=== PATIENT | female | born 1990 | race Caucasian/White ===

== ENCOUNTER 2016-04-17 19:46 | Emergency (ER) | payer SELFPAY ==
--- NOTE | 2016-04-17 20:39 | ER Document Report ---
ED Medical Screen (RME) - General Stated Complaint: VAGINAL BLEEDING Mode of Arrival: Ambulatory Information source: Patient Notes: Patient states that she is almost 8 weeks . Patient reports vaginal bleeding that started today, the reports a similar episode a few days ago. Patient does report lower pelvic cramping today. Patient denies any urinary symptoms. Patient has not had an ultrasound confirming the I have greeted and performed a rapid initial assessment of this patient. A comprehensive ED assessment and evaluation of the patient, analysis of test results and completion of the medical decision making process will be conducted by additional ED providers. TRAVEL OUTSIDE OF THE [place] IN LAST 30 DAYS: No - Related Data Allergies/Adverse Reactions: No Known Allergies Allergy (Verified 04/07/15 21:19) Past Medical History Psychiatric Medical History: Reports: Hx Anxiety, Hx Depression - Past Surgical History: Reports: Hx Section - Immunizations Hx Diphtheria, Pertussis, Tetanus Vaccination: No Physical Exam - General General appearance: Appears well, Alert In distress: None Course - Re-evaluation Re-evalutation: 04/17/16 20:[address] Caceres who recommends ultrasound imaging
[2016-04-17 21:29] LABS: ABSOLUTE EOSINOPHILS # (AUTO) 0.1 10^3/uL (0.0-0.6); ABSOLUTE LYMPHOCYTES (AUTO) 2.1 10^3/uL (0.5-4.7); ABSOLUTE MONOCYTES (AUTO) 0.5 10^3/uL (0.1-1.4); ABSOLUTE NEUT (AUTO) 9.9 10^3/uL (1.7-8.2); BASOPHILS % (AUTO) 0.3 % (0-2); EOSINOPHILS % (AUTO) 0.5 % (0-6); HEMATOCRIT 39.6 % (36.0-47.0); HEMOGLOBIN 13.6 g/dL (12.0-15.5); HGB HCT DIFFERENCE 1.2; LYMPHOCYTES % (AUTO) 16.8 % (13-45); MEAN CORPUSCULAR HGB CONC 34.3 g/dL (32.0-36.0); MEAN CORPUSCULAR VOLUME 87 fl (80-97); RED BLOOD COUNT 4.53 10^6/uL (3.72-5.28); RED CELL DISTRIBUTION WIDTH 13.3 % (11.5-14.0); SEGMENTED NEUTROPHILS % (AUTO) 78.4 % (42-78); WHITE BLOOD COUNT 12.6 10^3/uL (4.0-10.5)
[2016-04-17 21:53] LABS: ALANINE AMINOTRANSFERASE 37 U/L (9-52); ALBUMIN 4.8 g/dL (3.5-5.0); ALKALINE PHOSPHATASE 63 U/L (38-126); ANION GAP 13 (5-19); ASPARTATE AMINO TRANSFERASE 24 U/L (14-36); BILIRUBIN,TOTAL 0.5 mg/dL (0.2-1.3); BLOOD UREA NITROGEN 10 mg/dL (7-20); CALCIUM 10.2 mg/dL (8.4-10.2); CARBON DIOXIDE 25 mmol/L (22-30); CHLORIDE 101 mmol/L (98-107); CREATININE RESULT 0.69 mg/dL (0.52-1.25); GLUCOSE 98 mg/dL (75-110); POTASSIUM 4.1 mmol/L (3.6-5.0); SODIUM 139.2 mmol/L (137-145); TOTAL PROTEIN 7.7 g/dL (6.3-8.2)
[2016-04-17] MEDS ORDERED: PYRIDOXINE HCL INJ 100 MG/1 ML VIAL IM ONE (23:38)
--- NOTE | 2016-04-17 23:38 | ER Document Report ---
ED GI/ - General Chief Complaint: Vaginal Bleeding Stated Complaint: VAGINAL BLEEDING Time seen by provider: 23:28 Mode of Arrival: Ambulatory Information source: Patient Notes: 25-year-old female presents to ED for nausea vomiting and 8 weeks . She states that she started vaginal spotting on April 13 for a few hours and then again this morning it started again but today it was darker with a very small clot and she became very anxious. She has not had an ultrasound yet that shows that the baby was in the uterus so she was very concerned. TRAVEL OUTSIDE OF THE [place] IN LAST 30 DAYS: No - HPI Patient complains to provider of: , Vaginal bleeding. No: Pelvic pain Onset: Other - States she had episode on April 13 and again today Timing/Duration: Intermittent Quality of pain: No pain Vaginal bleeding (Compared to normal period): Spotting, Passing clots - States passed a small clot today Menstrual period history: : 2 Para: 1 ABO type: O Rh factor: positive OB ultrasound done: Yes vitamins taken: Yes Associated symptoms: Nausea, Other - Vaginal spotting Exacerbated by: Denies Relieved by: Denies Similar symptoms previously: Yes - Related Data Allergies/Adverse Reactions: No Known Allergies Allergy (Verified 04/17/16 20:39) Past Medical History - General Information source: Patient - Social History Smoking Status: Former Smoker Cigarette use (# per day): No Chew tobacco use (# tins/day): No Smoking Education Provided: No Frequency of alcohol use: None Drug Abuse: None Occupation: mom Lives with: Family Family History: Arthritis, CAD, DM, Hyperlipidemia, Hypertension, Malignancy. denies: COPD, CVA, Thyroid Disfunction Patient has suicidal ideation: No Patient has homicidal ideation: No - Past Medical History Cardiac Medical History: Reports: Hx Hypertension - Preeclampsia before and after delivery Pulmonary Medical History: Reports: Hx Asthma EENT Medical History: Reports: None Neurological Medical History: Reports: None Endocrine Medical History: Reports: None Renal/ Medical History: Reports: None Malignancy Medical History: Reports: None GI Medical History: Reports: None Musculoskeltal Medical History: Reports None Skin Medical History: Reports None Psychiatric Medical History: Reports: Hx Anxiety, Hx Depression - Traumatic Medical History: Reports: None Infectious Medical History: Reports: None Past Surgical History: Reports: Hx Section - Immunizations Hx Diphtheria, Pertussis, Tetanus Vaccination: No Review of Systems - Review of Systems Constitutional: No symptoms reported EENT: No symptoms reported Cardiovascular: No symptoms reported Respiratory: No symptoms reported Gastrointestinal: Nausea, Vomiting Genitourinary: No symptoms reported Female Genitourinary: , Vaginal bleeding Musculoskeletal: No symptoms reported Skin: No symptoms reported Hematologic/Lymphatic: No symptoms reported Neurological/Psychological: No symptoms reported Physical Exam - Vital signs Vitals: Temp Pulse Resp BP Pulse Ox 97.9 F 109 H 16 131/80 H 98 04/17/16 20:08 04/17/16 20:08 04/17/16 20:08 04/17/16 20:08 04/17/16 20:08 Interpretation: Hypertensive - General General appearance: Appears well, Alert - HEENT Head: Normocephalic, Atraumatic Eyes: Normal Pupils: PERRL - Respiratory Respiratory status: No respiratory distress Chest status: Nontender Breath sounds: Normal Chest palpation: Normal - Cardiovascular Rhythm: Regular Heart sounds: Normal auscultation Murmur: No - Abdominal Inspection: Normal Distension: No distension Bowel sounds: Normal Tenderness: Nontender. No: Tender Organomegaly: No organomegaly - Back Back: Normal, Nontender - Extremities General upper extremity: Normal inspection, Nontender, Normal color, Normal ROM , Normal temperature General lower extremity: Normal inspection, Nontender, Normal color, Normal ROM , Normal temperature, Normal weight bearing. No: Abundio's sign - Neurological Neuro grossly intact: Yes Cognition: Normal Orientation: AAOx4 [place] Coma Scale Eye Opening: Spontaneous [place] Coma Scale Verbal: Oriented [place] Coma Scale Motor: Obeys Commands Jan Coma Scale Total: 15 Speech: Normal Motor strength normal: LUE, RUE, LLE, RLE Sensory: Normal - Psychological Associated symptoms: Normal affect, Normal mood - Skin Skin Temperature: Warm Skin Moisture: Dry Skin Color: Normal Course - Re-evaluation Re-evalutation: 04/18/16 08:[address] Yeung concerning getting a ultrasound on this young lady who is and having vaginal bleeding and has not yet had a ultrasound to confirm intrauterine . Patient states she had some spotting with small clots. - Vital Signs Vital signs: Temp Pulse Resp BP Pulse Ox 98.1 F 76 16 125/83 97 04/18/16 00:14 04/18/16 00:14 04/18/16 00:14 04/18/16 00:14 04/18/16 00:14 - Laboratory Result Diagrams: 04/17/16 21:03 04/17/16 21:03 Laboratory results interpreted by me: 04/17/16 04/17/16 21:03 21:03 WBC 12.6 H Seg Neutrophils % 78.4 H Absolute Neutrophils 9.9 H Beta HCG, Quant 00612.00 H - Diagnostic Test Radiology reviewed: Image reviewed, Reports reviewed Discharge - Discharge Clinical Impression: Vaginal bleeding before 22 weeks gestation Condition: Stable Disposition: HOME, SELF-CARE Additional Instructions: : You are . care is best started as early in as possible. If you're unsure about continuing this , you should discuss this with your physician or with back tender cloth printing at [facility]. You should take only medications approved by your physician. Acetaminophen can safely be taken for minor pains. As a rule, medication for chronic conditions such as asthma or seizures can safely be continued. You should discuss with the physician every medicine you take. Any regular exercise program can be continued. Talk to your physician, however, before engaging in competitive or demanding sports. Alcohol, smoking, and "street drugs" are dangerous to your baby. Cocaine is especially dangerous. Don't use any illicit drugs! You were given a copy of your ultrasound report please follow-up with your OB/ QUILL CLEANER and take this to your appointment BLEEDING DURING EARLY : You have been evaluated for passing blood while . While we take this symptom very seriously, most women with your degree of bleeding will go on to have a perfectly normal baby. At this time, there is no indication that a miscarriage will occur. (A miscarriage occurs when the fetus is abnormal. There is no medicine or treatment to prevent it.) A more serious cause of bleeding is tubal (or ectopic) . An ultrasound usually can show whether the is in the uterus or in the tube. Sometimes in early , no fetus is seen. In this case, careful follow-up, including repeat blood tests and repeat ultrasound, is necessary. Do not douche or have sex for at least a week, or until OK'd by the doctor. Don't use tampons. Call the doctor or return for re-examination if there is an increase in bleeding or cramping, extreme weakness, fainting, new abdominal pain, fever, or passage of tissue. Acetaminophen Acetaminophen may be taken for pain relief or fever control. It's much safer than aspirin, offering a wider range of "safe" dosages. It is safe during . Some brand names are Tylenol, Panadol, Datril, Anacin 3, Tempra, and Liquiprin. Acetaminophen can be repeated every four hours. The following are maximum recommended dosages: WEIGHT Dose Drops Elixir Chewable( 80mg) (LBS.) drprs=droppers tsp=teaspoon 6 40 mg .4 ml (1/2) 6-11 80 mg .8 ml (full) 1/2 tsp 1 tab 12-16 120 mg 1 1/2 drprs 3/4 tsp 1 1/2 tabs 17-23 160 mg 2 drprs 1 tsp 2 tabs 24-30 240 mg 3 drprs 1 1/2 tsp 3 tabs 30-35 320 mg 2 tsp 4 tabs 36-41 360 mg 2 1/4 tsp 4 1 /2 tabs 42-47 400 mg 2 1/2 tsp 5 tabs 48-53 480 mg 3 tsp 6 tabs 54-59 520 mg 3 1/4 tsp 6 1 /2 tabs 60-64 560 mg 3 1/2 tsp 7 tabs 65-70 600 mg 3 3/4 tsp 7 1 /2 tabs 71-76 640 mg 4 tsp 8 tabs 77-82 720 mg 4 1/2 tsp 9 tabs 83-88 800 mg 5 tsp 10 tabs >89 pounds or adults 650 mg to 900 mg Acetaminophen can be repeated every four hours. Maximum daily dose not to exceed 4000 mg. These maximum recommended dosages are slightly higher than the dosages written on the product container, but these dosages are very safe and well below the toxic dosage for acetaminophen. You should try [id number] vitamin B 6 for your nausea. Please follow-up with one of the X RAY TECHNICIAN's and schedule a follow-up appointment. FOLLOW-UP CARE: If you have been referred to a physician for follow-up care, call the physician s office for an appointment as you were instructed or within the next two days. If you experience worsening or a significant change in your symptoms (very heavy bleeding with large clots of blood, passage of tissue, more severe abdominal / pelvic pain or cramping, feeling faint or severe weakness, fever, etc.), notify the physician immediately or return to the Emergency Department at any time for re-evaluation. OBSTETRIC-GYNECOLOGIC (OB-QUILL [facility]AN[facility]) PHYSICIANS IN [place]: [facility] [address] [place] [address] [phone] For active duty and dependents diagnosed with a threatened or miscarriage, you should follow up in the following manner: Standard patients who have a local civilian provider should follow up with that provider. Patients of the Family Practice Clinic should call your Team Nurse at 8: 00 am the following morning for further instructions. If you are neither a Standard patient nor a patient of the Family Practice Clinic, you should follow up at the [facility] ([facility]) . Patients already enrolled in the [facility] OB Clinic, Prime patients not assigned to the Family Practice Clinic, and Active Duty patients not assigned to Family Practice Clinic should report to the [facility] Lab at 8:00 am the next morning that the [facility] OB Clinic is open and then you will be seen in the OB Clinic at 11:00 am. Forms: Elevated Blood Pressure Referrals: [facility] [Provider Group] - Follow up as needed
[2016-04-17] MEDS ORDERED: PYRIDOXINE HCL INJ 100 MG/1 ML VIAL ONE (23:58)
[2016-04-18 00:16] VITALS: BP 125/83
== END 2016-04-18 00:14 | disposition home or self-care (01) ==
LOC: ER 19:46
DX: O20.9 Hemorrhage in early pregnancy, unspecified (principal); O21.9 Vomiting of pregnancy, unspecified; O99.511 Diseases of the respiratory system complicating pregnancy, first trimester; J45.909 Unspecified asthma, uncomplicated; Z3A.08 8 weeks gestation of pregnancy; Z87.891 Personal history of nicotine dependence
CPT/HCPCS: 99284; 96372; 86900; 86901; 36415; 84702; 85025; 80053; 76817; J3415

== ENCOUNTER → 2016-05-08 | Outpatient (CLI) | payer MEDICAID ==
[2016-05-08 15:08] LABS: PROTHROMBIN TIME 12.2 SEC (11.4-15.4)
[2016-05-08 15:09] LABS: PARTIAL THROMBOPLASTIN TIME 32.3 SEC (23.5-35.8)
[2016-05-08 15:14] LABS: URIC ACID 3.7 mg/dL (2.5-6.2)
[2016-05-08 15:17] LABS: ABSOLUTE EOSINOPHILS # (AUTO) 0.1 10^3/uL (0.0-0.6); ABSOLUTE LYMPHOCYTES (AUTO) 2.5 10^3/uL (0.5-4.7); ABSOLUTE MONOCYTES (AUTO) 0.5 10^3/uL (0.1-1.4); ABSOLUTE NEUT (AUTO) 8.4 10^3/uL (1.7-8.2); BASOPHILS % (AUTO) 0.3 % (0-2); EOSINOPHILS % (AUTO) 0.6 % (0-6); HEMATOCRIT 37.9 % (36.0-47.0); HEMOGLOBIN 12.8 g/dL (12.0-15.5); HGB HCT DIFFERENCE 0.5; LYMPHOCYTES % (AUTO) 21.6 % (13-45); MEAN CORPUSCULAR HEMOGLOBIN 29.5 pg (27.0-33.4); MEAN CORPUSCULAR HGB CONC 33.7 g/dL (32.0-36.0); MEAN CORPUSCULAR VOLUME 87 fl (80-97); MONOCYTES % (AUTO) 4.7 % (3-13); RED BLOOD COUNT 4.34 10^6/uL (3.72-5.28); RED CELL DISTRIBUTION WIDTH 13.2 % (11.5-14.0); SEGMENTED NEUTROPHILS % (AUTO) 72.8 % (42-78); WHITE BLOOD COUNT 11.5 10^3/uL (4.0-10.5)
== END ==
LOC: OCH 14:41
DX: Z34.81 Encounter for supervision of other normal pregnancy, first trimester (principal)
CPT/HCPCS: 36415; 82570; 83615; 84156; 84450; 84460; 84550; 85025; 85610; 85730

== ENCOUNTER 2016-05-24 13:49 | Emergency (ER) | payer MEDICAID ==
--- NOTE | 2016-05-24 14:06 | ER Document Report ---
ED Medical Screen (RME) - General Stated Complaint: NAUSEA,VOMITING Time seen by provider: 14:04 Mode of Arrival: Wheelchair Information source: Patient Notes: 25-year-old female presents to ED for nausea and vomiting. She is 11 weeks says she's had nausea and vomiting throughout her but today it is much worse. She states she is also having abdominal pain and back pain. She states she is on Diglegis for the [place]. 2 para 1 I have greeted and performed a rapid initial assessment of this patient. A comprehensive ED assessment and evaluation of the patient, analysis of test results and completion of medical decision making process will be conducted by an additional ED providers. TRAVEL OUTSIDE OF THE [place] IN LAST 30 DAYS: No - Related Data Allergies/Adverse Reactions: No Known Allergies Allergy (Verified 04/17/16 20:39) Past Medical History - Past Medical History Cardiac Medical History: Reports: Hx Hypertension - Preeclampsia before and after delivery Pulmonary Medical History: Reports: Hx Asthma Renal/ Medical History: Denies: Hx Peritoneal Dialysis Psychiatric Medical History: Reports: Hx Anxiety, Hx Depression - Past Surgical History: Reports: Hx Section - Immunizations Hx Diphtheria, Pertussis, Tetanus Vaccination: No Physical Exam - Vital signs Vitals: Temp Pulse Resp BP Pulse Ox 97.8 F 114 H 18 125/80 99 05/24/16 14:05/24/16 14:05/24/16 14:01 05/24/16 14:01 05/24/16 14:01 Course - Vital Signs Vital signs: Temp Pulse Resp BP Pulse Ox 97.8 F 114 H 18 125/80 99 05/24/16 14:05/24/16 14:05/24/16 14:05/24/16 14:01 05/24/16 14:01
[2016-05-24 14:51] LABS: ABSOLUTE BASOPHILS # (AUTO) 0.1 10^3/uL (0.0-0.2); ABSOLUTE MONOCYTES (AUTO) 0.4 10^3/uL (0.1-1.4); ABSOLUTE NEUT (AUTO) 14.7 10^3/uL (1.7-8.2); BASOPHILS % (AUTO) 0.4 % (0-2); EOSINOPHILS % (AUTO) 0.2 % (0-6); HEMATOCRIT 36.5 % (36.0-47.0); HEMOGLOBIN 12.7 g/dL (12.0-15.5); HGB HCT DIFFERENCE 1.6; LYMPHOCYTES % (AUTO) 6.5 % (13-45); MEAN CORPUSCULAR HEMOGLOBIN 30.1 pg (27.0-33.4); MEAN CORPUSCULAR HGB CONC 34.9 g/dL (32.0-36.0); MEAN CORPUSCULAR VOLUME 86 fl (80-97); MONOCYTES % (AUTO) 2.2 % (3-13); RED BLOOD COUNT 4.24 10^6/uL (3.72-5.28); RED CELL DISTRIBUTION WIDTH 13.3 % (11.5-14.0); SEGMENTED NEUTROPHILS % (AUTO) 90.7 % (42-78); WHITE BLOOD COUNT 16.2 10^3/uL (4.0-10.5)
[2016-05-24 15:01] LABS: ALANINE AMINOTRANSFERASE 29 U/L (9-52); ALBUMIN 4.1 g/dL (3.5-5.0); ALKALINE PHOSPHATASE 65 U/L (38-126); ANION GAP 15 (5-19); ASPARTATE AMINO TRANSFERASE 19 U/L (14-36); BILIRUBIN,DIRECT 0.2 mg/dL (0.0-0.4); BILIRUBIN,TOTAL 0.6 mg/dL (0.2-1.3); BLOOD UREA NITROGEN 7 mg/dL (7-20); CALCIUM 9.2 mg/dL (8.4-10.2); CARBON DIOXIDE 23 mmol/L (22-30); CHLORIDE 103 mmol/L (98-107); GLUCOSE 97 mg/dL (75-110); POTASSIUM 4.2 mmol/L (3.6-5.0); SODIUM 140.5 mmol/L (137-145); TOTAL PROTEIN 7.2 g/dL (6.3-8.2)
[2016-05-24 15:08] LABS: APPEARANCE,URINE SLIGHTLY-CLOUDY; BILIRUBIN,URINE NEGATIVE (NEGATIVE); GLUCOSE, URINE NEGATIVE (NEGATIVE); KETONES,URINE 80 mg/dL (NEGATIVE); LEUKOCYTE ESTERASE,URINE NEGATIVE (NEGATIVE); NITRITE,URINE NEGATIVE (NEGATIVE); PROTEIN,URINE 100 mg/dL (NEGATIVE); URINE SPECIFIC GRAVITY 1.032; UROBILINOGEN,URINE NEGATIVE mg/dL (<2.0)
[2016-05-24] MEDS ORDERED: DIPHENHYDRAMINE HCL 50 MG/ML VIAL IV ONE (17:39)
[2016-05-24] MEDS ORDERED: NORMAL SALINE 1000 ML 2,000 ML IV ONE (17:39)
--- NOTE | 2016-05-24 17:40 | ER Document Report ---
ED GI/ - General Chief Complaint: Nausea/Vomiting Stated Complaint: NAUSEA,VOMITING Mode of Arrival: Wheelchair Information source: Patient Notes: Patient states she is currently 11 weeks and reports nausea and vomiting throughout her early that worsened today. Patient states she 's vomited about 11 times. Patient states her son has been sick at home with similar symptoms. Patient is . Patient does report lower pelvic cramping. Patient denies any diarrhea. Patient reports generalized abdominal tenderness. Patient reports having some dizziness earlier today but has improved. TRAVEL OUTSIDE OF THE [place] IN LAST 30 DAYS: No - HPI Patient complains to provider of: Abdominal pain, , Vomiting. No: Vaginal bleeding, Vaginal discharge Onset: This morning Timing/Duration: Persistent Quality of pain: Achy Pain Level: 3 Location: Other Vaginal bleeding (Compared to normal period): None - Generalized abdomen Sexual history: Active Associated symptoms: Dizzy, Nausea, Vomiting. denies: Diarrhea, Urinary hesitancy, Urinary frequency, Urinary retention, Urinary urgency, Vaginal discharge Exacerbated by: Denies Relieved by: Denies Similar symptoms previously: Yes Recently seen / treated by doctor: No - Related Data Allergies/Adverse Reactions: No Known Allergies Allergy (Verified 04/17/16 20:39) Past Medical History - General Information source: Patient Last Menstrual Period: 11 weeks - Social History Smoking Status: Never Smoker Chew tobacco use (# tins/day): No Frequency of alcohol use: None Drug Abuse: None Occupation: none Lives with: Family Family History: Arthritis, CAD, DM, Hyperlipidemia, Hypertension, Malignancy. denies: COPD, CVA, Thyroid Disfunction Patient has suicidal ideation: No Patient has homicidal ideation: No - Past Medical History Cardiac Medical History: Reports: Hx Hypertension - Preeclampsia before and after delivery Pulmonary Medical History: Reports: Hx Asthma Renal/ Medical History: Denies: Hx Peritoneal Dialysis Psychiatric Medical History: Reports: Hx Anxiety, Hx Depression - Past Surgical History: Reports: Hx Section - Immunizations Hx Diphtheria, Pertussis, Tetanus Vaccination: No Review of Systems - Review of Systems Constitutional: No symptoms reported. denies: Fever, Recent illness EENT: No symptoms reported Cardiovascular: Dizziness. denies: Chest pain, Syncope Respiratory: No symptoms reported. denies: Cough, Short of breath Gastrointestinal: Abdominal pain, Nausea, Vomiting, Poor fluid intake. denies: Diarrhea Genitourinary: No symptoms reported. denies: Dysuria, Flank pain Female Genitourinary: . denies: Vaginal discharge, Vaginal bleeding Musculoskeletal: No symptoms reported Skin: No symptoms reported Hematologic/Lymphatic: No symptoms reported Neurological/Psychological: No symptoms reported Physical Exam - Vital signs Vitals: Temp Pulse Resp BP Pulse Ox 97.8 F 114 H 18 125/80 99 05/24/16 14:01 05/24/16 14:01 05/24/16 14:01 05/24/16 14:01 05/24/16 14:01 - General General appearance: Appears well, Alert In distress: None - HEENT Head: Normocephalic, Atraumatic Eyes: Normal Conjunctiva: Normal Nasal: Normal Mouth/Lips: Normal Mucous membranes: Dry Pharynx: Normal Neck: Normal, Supple. No: Lymphadenopathy - Respiratory Respiratory status: No respiratory distress Chest status: Nontender Breath sounds: Normal. No: Rales, Rhonchi, Stridor, Wheezing Chest palpation: Normal - Cardiovascular Rhythm: Tachycardia Heart sounds: S1 appreciated, S2 appreciated Murmur: No - Abdominal Inspection: Obese Distension: No distension Bowel sounds: Normal Tenderness: Tender - Generalized abdominal tenderness Organomegaly: No organomegaly - Back Back: Normal, Nontender. No: CVA tenderness, Vertebra tenderness - Extremities General upper extremity: Normal inspection, Normal strength General lower extremity: Normal inspection, Normal strength - Neurological Neuro grossly intact: Yes Cognition: Normal Jan Coma Scale Eye Opening: Spontaneous Jan Coma Scale Verbal: Oriented [place] Coma Scale Motor: Obeys Commands Jan Coma Scale Total: 15 - Psychological Associated symptoms: Normal affect, Normal mood - Skin Skin Temperature: Warm Skin Moisture: Dry Skin Color: Normal Course - Re-evaluation Re-evalutation: 05/24/16 20:08 Abdomen soft, nontender. Patient denies any nausea at present. Discuss results of patient's diagnostic tests with patient. Patient encouraged to return immediately for any persistent vomiting, pain, fever, or any other concerning symptoms. - Vital Signs Vital signs: Temp Pulse Resp BP Pulse Ox 98.8 F 98 20 120/72 97 05/24/16 20:24 05/24/16 20:24 05/24/16 20:24 05/24/16 20:24 05/24/16 20:24 - Laboratory Result Diagrams: 05/24/16 14:30 05/24/16 14:30 Laboratory results interpreted by me: 05/24/16 05/24/16 05/24/16 14:30 14:30 14:35 WBC 16.2 H Seg Neutrophils % 90.7 H Lymphocytes % 6.5 L Monocytes % 2.2 L Absolute Neutrophils 14.7 H Creatinine 0.50 L Beta HCG, Quant 56554.00 H Urine Protein 100 H Urine Ketones 80 H Urine Ascorbic Acid 40 H 05/24/16 20:08 Labs- Entire Visit 05/24/16 05/24/16 05/24/16 14:30 14:30 14:35 WBC 16.2 H RBC 4.24 Hgb 12.7 Hct 36.5 MCV 86 MCH 30.1 MCHC 34.9 RDW 13.3 Plt Count 233 Seg Neutrophils % 90.7 H Lymphocytes % 6.5 L Monocytes % 2.2 L Eosinophils % 0.2 Basophils % 0.4 Absolute Neutrophils 14.7 H Absolute Lymphocytes 1.0 Absolute Monocytes 0.4 Absolute Eosinophils 0.0 Absolute Basophils 0.1 Sodium 140.5 Potassium 4.2 Chloride 103 Carbon Dioxide 23 Anion Gap 15 BUN 7 Creatinine 0.50 L Est GFR ( Amer) > 60 Est GFR (Non-Af Amer) > 60 Glucose 97 Calcium 9.2 Total Bilirubin 0.6 Direct Bilirubin 0.2 Indirect Bilirubin Not Reportable Neonat Total Bilirubin Not Reportable AST 19 ALT 29 Alkaline Phosphatase 65 Total Protein 7.2 Albumin 4.1 Beta HCG, Quant 54624.00 H Total Beta HCG POSITIVE Urine Color YELLOW Urine Appearance SLIGHTLY-CLOUDY Urine pH 6.0 Ur Specific Max 1.032 Urine Protein 100 H Urine Glucose (UA) NEGATIVE Urine Ketones 80 H Urine Blood NEGATIVE Urine Nitrite NEGATIVE Urine Bilirubin NEGATIVE Urine Urobilinogen NEGATIVE Ur Leukocyte Esterase NEGATIVE Urine WBC (Auto) 1 Urine RBC (Auto) 1 Squamous Epi Cells Auto 8 Urine Mucus (Auto) MOD Urine Ascorbic Acid 40 H Discharge - Discharge Clinical Impression: Dehydration, Resolved abdominal pain Qualifiers: Weeks of gestation: 11 weeks Qualified Code(s): Z3A.11 - 11 weeks gestation of Vomiting Qualifiers: Vomiting type: unspecified Vomiting Intractability: non-intractable Nausea presence: with nausea Qualified Code(s): R11.2 - Nausea with vomiting, unspecified Condition: Stable Disposition: HOME, SELF-CARE Additional Instructions: Return immediately for any new or worsening symptoms Followup with your RN MIDWIFE care provider, call tomorrow to make a followup appointment You may take Benadryl [id number] as directed to help with her nausea symptoms VOMITING: Vomiting (or nausea without vomiting) can be caused by many other different problems. It can mean that something's wrong with the stomach, such as ulcers or inflammation or the intestinal tract, such as appendicitis. But it can also be a symptom of a problem that has nothing to do with the stomach or intestines. Vomiting is common with severe headaches, earaches, tonsillitis, and kidney infections, etc. We see it with pneumonia or heart attacks. Drugs can cause nausea and vomiting. Many abdominal problems cause vomiting; for example, gallstones, kidney stones, pancreatitis, and intestinal obstruction ( blocked bowels). In most cases, curing the vomiting depends on fixing the problem that caused it. For temporary relief, we may use an anti-nausea medicine. For home use, we can prescribe suppositories, chewable pills, pills that dissolve in the mouth, or liquid anti-nausea drugs. If the vomiting seems to be caused by a problem in the stomach, acid-suppressing drugs may be prescribed as well. It's important to avoid dehydration. Sip small amounts of clear liquids ( soft drinks, tea, broth, etc) . Try to take fluids frequently even if you are vomiting to prevent dehydration. Take increasing amounts of fluid and when liquids are being consumed successfully, advance to small amounts of bland food (toast, soups, mashed potatoes, etc.) until you are able to resume a regular diet. Avoid aspirin, tobacco, and alcohol. If the vomiting worsens, if the problem that's making you vomit worsens, or if there's evidence of bleeding in the stomach (such as black, tarry stool, or bloody or black vomit), you should return immediately. Also, return if abdominal pain worsens or becomes localized to one area or you develop high fever. Call your doctor if you aren't improved in 24 hours. INTRAVENOUS (I V) FLUIDS: As part of your care today, you received intravenous (IV) fluids. IV fluids are administered to patients who are dehydrated or to those who have certain chemical (electrolyte) abnormalities that need correcting. FOLLOW-UP CARE: If you have been referred to a physician for follow-up care, call the physician s office for an appointment as you were instructed or within the next two days. If you experience worsening or a significant change in your symptoms, notify the physician immediately or return to the Emergency Department at any time for re-evaluation. [facility] [NO LOCAL MD] - Follow up tomorrow
[2016-05-24 20:25] VITALS: BP 120/72
== END 2016-05-24 20:28 | disposition home or self-care (01) ==
LOC: ER 13:49
DX: E86.0 Dehydration (principal); R11.2 Nausea with vomiting, unspecified; R10.9 Unspecified abdominal pain; R10.2 Pelvic and perineal pain; Z3A.11 11 weeks gestation of pregnancy
CPT/HCPCS: 99283; 96361; 96374; 36415; 84702; 85025; 80053; 81001; J1200; J7030

== ENCOUNTER 2016-08-11 18:37 | Outpatient (CLI) | payer MEDICAID ==
[2016-08-11 21:52] LABS: APPEARANCE,URINE CLEAR; BILIRUBIN,URINE NEGATIVE (NEGATIVE); GLUCOSE, URINE NEGATIVE (NEGATIVE); KETONES,URINE NEGATIVE (NEGATIVE); LEUKOCYTE ESTERASE,URINE NEGATIVE (NEGATIVE); NITRITE,URINE NEGATIVE (NEGATIVE); PROTEIN,URINE NEGATIVE (NEGATIVE); URINE SPECIFIC GRAVITY 1.004; UROBILINOGEN,URINE NEGATIVE mg/dL (<2.0)
[2016-08-11 22:05] LABS: URINE METHADONE SCREEN NEGATIVE; URINE OPIATES LOW NEGATIVE; URINE PHENCYCLIDINE SCREEN NEGATIVE
[2016-08-11 22:11] LABS: URINE BARBITURATES SCREEN UNCONFIRMED POSITIVE
--- NOTE | 2016-08-12 00:01 | RADIOLOGY REPORT (SQ) ---
EXAM DESCRIPTION: U/S OB 14+ TA/1 GEST W/DOPPLER COMPLETED DATE/TIME: 08/11/2016 11:40 pm REASON FOR STUDY: contractions with history of csection COMPARISON: None. TECHNIQUE: Static and Dynamic grayscale imaging performed of gravid uterus using transabdominal appr oach. Additional selected color Doppler and spectral images recorded. All stored on PACS. LIMITATIONS: None. FINDINGS: EGA: 24 weeks, 4 days CARMENCITA: 11/27/2016 EFW: 727 g PERCENTILE: 68 SHAMEKA: 11.7 PLACENTA: Posterior PRESENTATION: Breech ANATOMY: HEART RATE: 143 beats per minute. FOUR CHAMBER HEART: Visualized. THREE VESSEL CORD: Yes. CORD INSERTION: Visualized. KIDNEYS AND BLADDER: Visualized. Appear normal. STOMACH: Visualized. Appears normal. SPINE: Normal as visualized. BRAIN AND LATERAL VENTRICLES: Visualized. Appear normal. OTHER: No other significant finding. MATERNAL ADNEXA: Maternal ovaries not visualized. CERVICAL LENGTH: 4.0 cm Closed. OTHER: No other significant finding. IMPRESSION: LIVING INTRAUTERINE . ESTIMATED GESTATIONAL AGE 24 weeks, 4 days NO VISUALIZED ANOMALIES. Trimester of : Second trimester - 13 weeks 1 day to 27 weeks 6 days. TECHNICAL DOCUMENTATION: JOB ID: [id number] [employer]- All Rights Reserved
== END 2016-08-12 00:31 | disposition home or self-care (01) ==
LOC: LC 18:37
PROVIDERS: ATTEND Obstetrics & Gynecology
PROC: 4A1HXCZ Monitoring of Products of Conception, Cardiac Rate, External Approach (ICD-10-PCS; principal; 2016-08-11)
DX: O47.02 False labor before 37 completed weeks of gestation, second trimester (principal); O34.219 Maternal care for unspecified type scar from previous cesarean delivery; Z3A.24 24 weeks gestation of pregnancy
CPT/HCPCS: 76805; 80307; 81001; 87086; 93976

== ENCOUNTER 2016-08-22 23:06 | Outpatient (CLI) | payer MEDICAID ==
[2016-08-23 00:12] LABS: APPEARANCE,URINE SLIGHTLY-CLOUDY; BILIRUBIN,URINE NEGATIVE (NEGATIVE); CALCIUM OXALATE CRYSTALS,URINE MANY /HPF; GLUCOSE, URINE NEGATIVE (NEGATIVE); KETONES,URINE NEGATIVE (NEGATIVE); LEUKOCYTE ESTERASE,URINE NEGATIVE (NEGATIVE); NITRITE,URINE NEGATIVE (NEGATIVE); PROTEIN,URINE 30 mg/dL (NEGATIVE); URINE SPECIFIC GRAVITY 1.017; UROBILINOGEN,URINE NEGATIVE mg/dL (<2.0)
[2016-08-23 00:26] LABS: URINE BARBITURATES SCREEN NEGATIVE; URINE METHADONE SCREEN NEGATIVE; URINE OPIATES LOW NEGATIVE; URINE PHENCYCLIDINE SCREEN NEGATIVE
[2016-08-23] MEDS ORDERED: ONDANSETRON 4 MG TAB.RAPDIS PO ONE (01:00)
[2016-08-23] MEDS ORDERED: ONDANSETRON 4 MG TAB.RAPDIS ONE (01:08)
== END 2016-08-23 01:13 | disposition home or self-care (01) ==
LOC: LC 23:06
PROVIDERS: ATTEND Obstetrics & Gynecology
PROC: 4A1HXCZ Monitoring of Products of Conception, Cardiac Rate, External Approach (ICD-10-PCS; principal; 2016-08-22)
DX: O47.02 False labor before 37 completed weeks of gestation, second trimester (principal); Z3A.24 24 weeks gestation of pregnancy
CPT/HCPCS: 59899; 81001; 80307; S0119

== ENCOUNTER 2018-05-24 10:56 | Emergency (ER) | payer SELFPAY ==
[2018-05-24] MEDS ORDERED: METOCLOPRAMIDE HCL 10 MG TABLET PO ONE (11:41)
--- NOTE | 2018-05-24 11:43 | ER Document Report ---
ED Medical Screen (RME) - General Chief Complaint: Flank Pain Stated Complaint: NAUSEA Time Seen by Provider: 05/24/18 11:36 Primary Care Provider: MICHAEL ESPINAL DO [Primary Care Provider] - Follow up as needed Notes: 27-year-old female patient complaining of left flank pain for 2 weeks. Is been getting worse, and this morning was much worse and she developed nausea and vomiting. She did try some leftover Zofran and it helped and stop the vomiting, but she still does remain nauseous. Her last menstrual period was on 05/20/2018 or 05/21/2018, it was a little late and the bleeding has been heavier than normal. She is not on control. I have greeted and performed a rapid initial assessment of this patient. A comprehensive ED assessment and evaluation of the patient, analysis of test results and completion of the medical decision making process will be conducted by additional ED providers. TRAVEL OUTSIDE OF THE [place] IN LAST 30 DAYS: No - Related Data Allergies/Adverse Reactions: No Known Allergies Allergy (Verified 05/24/18 11:24) Past Medical History - Social History Frequency of alcohol use: None Drug Abuse: None - Past Medical History Cardiac Medical History: Reports: Hx Hypertension - Preeclampsia before and after delivery Pulmonary Medical History: Reports: Hx Asthma Renal/ Medical History: Denies: Hx Peritoneal Dialysis Psychiatric Medical History: Reports: Hx Anxiety, Hx Depression - Past Surgical History: Reports: Hx Section - Immunizations Hx Diphtheria, Pertussis, Tetanus Vaccination: No Physical Exam - Vital signs Vitals: Temp Pulse Resp BP Pulse Ox 98.3 F 101 H 18 140/89 H 98 05/24/18 11:02 05/24/18 11:02 05/24/18 11:02 05/24/18 11:02 05/24/18 11:02 Course - Vital Signs Vital signs: Temp Pulse Resp BP Pulse Ox 98.3 F 101 H 18 140/89 H 98 05/24/18 11:02 05/24/18 11:02 05/24/18 11:02 05/24/18 11:02 05/24/18 11:02 Doctor's Discharge - Discharge Referrals: MICHAEL ESPINAL DO [Primary Care Provider] - Follow up as needed
[2018-05-24 12:20] LABS: ABSOLUTE LYMPHOCYTES (AUTO) 1.4 10^3/uL (0.5-4.7); ABSOLUTE MONOCYTES (AUTO) 0.5 10^3/uL (0.1-1.4); ABSOLUTE NEUT (AUTO) 10.4 10^3/uL (1.7-8.2); BASOPHILS % (AUTO) 0.2 % (0-2); EOSINOPHILS % (AUTO) 0.1 % (0-6); HEMOGLOBIN 13.8 g/dL (12.0-15.5); LYMPHOCYTES % (AUTO) 11.6 % (13-45); MEAN CORPUSCULAR HEMOGLOBIN 30.5 pg (27.0-33.4); MEAN CORPUSCULAR HGB CONC 34.6 g/dL (32.0-36.0); MEAN CORPUSCULAR VOLUME 88 fl (80-97); MONOCYTES % (AUTO) 4.1 % (3-13); PLATELET COUNT 251 10^3/uL (150-450); RED BLOOD COUNT 4.54 10^6/uL (3.72-5.28); RED CELL DISTRIBUTION WIDTH 13.7 % (11.5-14.0); TOTAL CELLS COUNTED % (AUTO) 100 %; WHITE BLOOD COUNT 12.4 10^3/uL (4.0-10.5)
[2018-05-24 12:28] LABS: APPEARANCE,URINE SLIGHTLY-CLOUDY; BILIRUBIN,URINE NEGATIVE (NEGATIVE); COLOR,URINE YELLOW; GLUCOSE, URINE NEGATIVE (NEGATIVE); KETONES,URINE NEGATIVE (NEGATIVE); LEUKOCYTE ESTERASE,URINE NEGATIVE (NEGATIVE); NITRITE,URINE NEGATIVE (NEGATIVE); PROTEIN,URINE NEGATIVE (NEGATIVE); URINE SPECIFIC GRAVITY 1.017; UROBILINOGEN,URINE NEGATIVE mg/dL (<2.0)
[2018-05-24 12:36] LABS: ALANINE AMINOTRANSFERASE 37 U/L (9-52); ALBUMIN 4.5 g/dL (3.5-5.0); ALKALINE PHOSPHATASE 65 U/L (38-126); ANION GAP 9 (5-19); ASPARTATE AMINO TRANSFERASE 27 U/L (14-36); BILIRUBIN,DIRECT 0.3 mg/dL (0.0-0.4); BILIRUBIN,TOTAL 0.5 mg/dL (0.2-1.3); BLOOD UREA NITROGEN 15 mg/dL (7-20); CALCIUM 9.8 mg/dL (8.4-10.2); CARBON DIOXIDE 26 mmol/L (22-30); CHLORIDE 106 mmol/L (98-107); GLUCOSE 104 mg/dL (75-110); POTASSIUM 4.2 mmol/L (3.6-5.0); SODIUM 141.3 mmol/L (137-145); TOTAL PROTEIN 7.6 g/dL (6.3-8.2)
[2018-05-24] MEDS ORDERED: NORMAL SALINE 1000 ML 1,000 ML IV ONE (12:53)
[2018-05-24] MEDS ORDERED: METOCLOPRAMIDE HCL INJ/PF 10 MG/2 ML SDV IV ONE (12:53)
[2018-05-24] MEDS ORDERED: KETOROLAC TROMETHAMINE INJ/PF 30 MG/1 ML SDV IV ONE (12:53)
--- NOTE | 2018-05-24 13:46 | RADIOLOGY REPORT (SQ) ---
EXAM DESCRIPTION: CT ABD/PELVIS NO ORAL OR IV COMPLETED DATE/TIME: 05/24/2018 1:37 pm REASON FOR STUDY: eval for left flank pain COMPARISON: None. TECHNIQUE: CT scan of the abdomen and pelvis performed without intravenous or oral contrast. Images reviewed with lung, soft tissue, and bone windows. Reconstructed coronal and sagittal MPR images revi ewed. All images stored on PACS. All CT scanners at this facility use dose modulation, iterative reconstruction, and/or weight based d osing when appropriate to reduce radiation dose to as low as reasonably achievable (ALARA). [facility]: Dose Right [facility]: CareDose [facility]: Dose Right [facility]: Teradose 4D [facility]: [employer] RADIATION DOSE: CT Rad equipment meets quality standard of care and radiation dose reduction techniq ues were employed. CTDIvol: 15.0 mGy. DLP: 816 mGy-cm.mGy. LIMITATIONS: None. FINDINGS: An 8 to 9 mm left proximal 3rd ureteral calculus is present at the level of the left L4 tr ansverse process. Stone measures 815 Hounsfield units, and causes moderate left hydronephrosis and u pper hydroureter with perinephric stranding. No other left-sided intrarenal or ureteral calculi. No gross left renal cysts or masses. LOWER CHEST: No significant findings. No nodules or infiltrates. NON-CONTRASTED LIVER, SPLEEN, ADRENALS: Evaluation limited by lack of IV contrast. No identified sign ificant masses. PANCREAS: No masses. No peripancreatic inflammatory changes. GALLBLADDER: No identified stones by CT criteria. No inflammatory changes to suggest cholecystitis. RIGHT KIDNEY AND URETER: No suspicious masses. Assessment limited by lack of IV contrast. No signif icant calcifications. No hydronephrosis or hydroureter. LEFT KIDNEY AND URETER: As above. AORTA AND RETROPERITONEUM: No aneurysm. No retroperitoneal masses or adenopathy. BOWEL AND PERITONEAL CAVITY: No obvious masses or inflammatory changes. No free fluid. APPENDIX: Normal. PELVIS, BLADDER, AND ABDOMINAL WALL:No abnormal masses. No free fluid. Bladder normal. Normal size f emale pelvic organs. BONES: No significant findings. OTHER: No other significant finding. IMPRESSION: 8 to 9 mm left upper ureteral stone causing moderate left hydronephrosis and perinephric stranding COMMENT: Quality ID # [id number]: Final reports with documentation of one or more dose reduction techniques (e.g., Automated exposure control, adjustment of the mA and/or kV according to patient size, use of iterative reconstruction technique) TECHNICAL DOCUMENTATION: JOB ID: [id number] [employer]- All Rights Reserved Reading location - IP/workstation name: [email or web address]
[2018-05-24] MEDS ORDERED: MORPHINE SULFATE 10 MG/ML INJ IV ONE (15:05)
--- NOTE | 2018-05-24 15:39 | ER Document Report ---
ED GI/ - General Chief Complaint: Flank Pain Stated Complaint: NAUSEA Time Seen by Provider: 05/24/18 11:36 Primary Care Provider: SARAVANAN FLYNN MD [NO LOCAL MD] - Follow up as needed Mode of Arrival: Ambulatory Information source: Patient Notes: Patient is an otherwise healthy 27-year-old female who presents to the emergency department with chief complaint of left flank pain that has been ongoing for 2 weeks. Patient reports pain increased significantly last night and she now has accompanied nausea and vomiting. Patient denies any fevers, diarrhea, dysuria. She describes the pain as a sharp stabbing pain that occasionally radiates around to the left lower abdomen. She denies any history of kidney stones. She is currently on her menstrual cycle. TRAVEL OUTSIDE OF THE [place] IN LAST 30 DAYS: No - Related Data Allergies/Adverse Reactions: No Known Allergies Allergy (Verified 05/24/18 11:24) Past Medical History - General Information source: Patient - Social History Smoking Status: Former Smoker Frequency of alcohol use: None Drug Abuse: None Family History: Arthritis, CAD, DM, Hyperlipidemia, Hypertension, Malignancy. denies: COPD, CVA, Thyroid Disfunction Patient has suicidal ideation: No Patient has homicidal ideation: No - Past Medical History Cardiac Medical History: Reports: Hx Hypertension - Preeclampsia before and after delivery Pulmonary Medical History: Reports: Hx Asthma Renal/ Medical History: Denies: Hx Peritoneal Dialysis Psychiatric Medical History: Reports: Hx Anxiety, Hx Depression - Past Surgical History: Reports: Hx Section - Immunizations Hx Diphtheria, Pertussis, Tetanus Vaccination: No Review of Systems - Review of Systems Constitutional: No symptoms reported. denies: Fever EENT: No symptoms reported Cardiovascular: No symptoms reported Respiratory: No symptoms reported Gastrointestinal: Nausea, Vomiting Genitourinary: Flank pain. denies: Burning, Dysuria Female Genitourinary: No symptoms reported Musculoskeletal: No symptoms reported Skin: No symptoms reported Hematologic/Lymphatic: No symptoms reported Neurological/Psychological: No symptoms reported Physical Exam - Vital signs Vitals: Temp Pulse Resp BP Pulse Ox 98.3 F 101 H 18 140/89 H 98 05/24/18 11:02 05/24/18 11:02 05/24/18 11:02 05/24/18 11:02 05/24/18 11:02 - Notes Notes: PHYSICAL EXAMINATION: GENERAL: Well-appearing, well-nourished and in no acute distress. HEAD: Atraumatic, normocephalic. EYES: Pupils equal round and reactive to light, extraocular movements intact, conjunctiva are normal. ENT: Nares patent, oropharynx clear without exudates. Moist mucous membranes. NECK: Normal range of motion, supple without lymphadenopathy LUNGS: Breath sounds clear to auscultation bilaterally and equal. No wheezes rales or rhonchi. HEART: Regular rate and rhythm without murmurs ABDOMEN: Soft, nontender, nondistended abdomen. No guarding, no rebound. No masses appreciated. Female : No CVA tenderness. Musculoskeletal: Normal range of motion, no pitting or edema. No cyanosis. Tenderness to palpation to left flank. NEUROLOGICAL: Cranial nerves grossly intact. Normal speech, normal gait. Normal sensory, motor exams PSYCH: Normal mood, normal affect. SKIN: Warm, Dry, normal turgor, no rashes or lesions noted. Course - Re-evaluation Re-evalutation: Patient nontoxic, appears well is alert and interactive. Patient's history and physical examination is most consistent with a kidney stone. CBC shows mildly elevated white blood count of 12.4. Comprehensive metabolic panel is unremarkable. Urinalysis shows moderate blood but no evidence of infection, no nitrites, no leukocyte esterase. We will send patient for CT to evaluate for left renal stone. CT of the abdomen and pelvis shows an 8-9 mm left proximal third ureteral calculus at the level of the left L4 transverse process. There is moderate hydronephrosis, hydroureter and perinephric stranding. We will consult urology. 05/24/18 16:[address] Flynn, [facility] who agrees that patient can be discharged home and he will see patient in his office, she shall call Saturday morning to get an appointment. - Vital Signs Vital signs: Temp Pulse Resp BP Pulse Ox 98.1 F 74 16 122/72 97 05/24/18 16:29 05/24/18 16:29 05/24/18 16:29 05/24/18 16:29 05/24/18 16:29 - Laboratory Result Diagrams: 05/24/18 12:05 05/24/18 12:05 Laboratory results interpreted by me: 05/24/18 05/24/18 05/24/18 12:05 12:05 12:05 WBC 12.4 H Seg Neutrophils % 84.0 H Lymphocytes % 11.6 L Absolute Neutrophils 10.4 H Est GFR (Non-Af Amer) 54 L Urine Blood MODERATE H Discharge - Discharge Clinical Impression: Kidney stone on left side Condition: Stable Disposition: HOME, SELF-CARE Additional Instructions: Kidney Stone You are passing or have passed a kidney stone. These stones are usually due to increased calcium or uric acid concentrations in your urine. Stones within the kidney itself are not painful. The pain occurs as the stone leaves the kidney to pass down the long tube, called the ureter, leading to the bladder. If the stone is small, it will usually pass by itself. Most patients can pass the stone at home. You will usually receive medications for pain, nausea or vomiting, and sometimes a medication to assist in passing the kidney stone. However, if the pain is very severe or if vomiting prevents you from taking oral pain medications, you may need to return for further treatment. Drink three or four quarts of fluids per day. You will be given pain medication (if needed) and urine strainers. Strain all your urine to see if the stone passes. If your doctor has asked you to bring the stone in for analysis, return with the stone once it has passed. Return if pain or vomiting become severe, if you develop a high fever, if you are unable to pass your urine, or if other unusual symptoms occur. Please call [facility] on Saturday to schedule a follow-up appointment. Let them know that you were seen in the emergency department and diagnosed with a in 8-9 mm stone. Please let them know that we contacted Dr. Flynn with [facility] and he would like to see you at the earliest available appointment. In the meanwhile please take medications as prescribed. Take ibuprofen 600 mg every 6 hours until you are seen by urology. Please return to the emergency department immediately if you develop persistent vomiting, develop a fever or develop a urinary tract infection symptoms such as burning or pain with urination. Prescriptions: Ondansetron [Zofran Odt 4 mg Tablet] 1 - 2 tab PO Q4H PRN #15 tab.rapdis PRN Reason: For Nausea/Vomiting Oxycodone HCl/Acetaminophen [Percocet 5-325 mg Tablet] 1 - 2 tab PO Q4H PRN #15 tablet PRN Reason: Forms: Return to Work Referrals: SARAVANAN FLYNN MD [NO LOCAL MD] - Follow up as needed
[2018-05-24 16:34] VITALS: BP 122/72
== END 2018-05-24 16:40 | disposition home or self-care (01) ==
LOC: ER 10:56
DX: N20.0 Calculus of kidney (principal); R10.9 Unspecified abdominal pain; R11.2 Nausea with vomiting, unspecified
CPT/HCPCS: 99284; 96361; 96374; 96375; 36415; 84703; 85025; 80053; 81001; 74176; J1885; J2765; J2270; J7030

== ENCOUNTER → 2018-09-30 | Outpatient (CLI) | payer MEDICAID ==
[2018-09-30 09:46] LABS: ABSOLUTE EOSINOPHILS # (AUTO) 0.1 10^3/uL (0.0-0.6); ABSOLUTE LYMPHOCYTES (AUTO) 2.8 10^3/uL (0.5-4.7); ABSOLUTE MONOCYTES (AUTO) 0.6 10^3/uL (0.1-1.4); ABSOLUTE NEUT (AUTO) 5.1 10^3/uL (1.7-8.2); BASOPHILS % (AUTO) 0.5 % (0-2); EOSINOPHILS % (AUTO) 0.7 % (0-6); HEMATOCRIT 39.1 % (36.0-47.0); HEMOGLOBIN 13.5 g/dL (12.0-15.5); LYMPHOCYTES % (AUTO) 32.8 % (13-45); MEAN CORPUSCULAR HGB CONC 34.4 g/dL (32.0-36.0); MEAN CORPUSCULAR VOLUME 87 fl (80-97); MONOCYTES % (AUTO) 6.6 % (3-13); PLATELET COUNT 258 10^3/uL (150-450); RED BLOOD COUNT 4.48 10^6/uL (3.72-5.28); RED CELL DISTRIBUTION WIDTH 14.4 % (11.5-14.0); SEGMENTED NEUTROPHILS % (AUTO) 59.4 % (42-78); TOTAL CELLS COUNTED % (AUTO) 100 %; WHITE BLOOD COUNT 8.6 10^3/uL (4.0-10.5)
[2018-09-30 10:08] LABS: ALBUMIN 4.5 g/dL (3.5-5.0); ALKALINE PHOSPHATASE 58 U/L (38-126); ANION GAP 10 (5-19); ASPARTATE AMINO TRANSFERASE 27 U/L (14-36); BILIRUBIN,DIRECT 0.3 mg/dL (0.0-0.4); BILIRUBIN,TOTAL 0.4 mg/dL (0.2-1.3); BLOOD UREA NITROGEN 11 mg/dL (7-20); CARBON DIOXIDE 25 mmol/L (22-30); CHLORIDE 105 mmol/L (98-107); CHOLESTEROL 227.68 mg/dL (0-200); GLUCOSE 99 mg/dL (75-110); POTASSIUM 4.4 mmol/L (3.6-5.0); TOTAL PROTEIN 7.5 g/dL (6.3-8.2); TRIGLYCERIDES 230 mg/dL (<150)
[2018-09-30 10:21] LABS: DIRECT LDL 143 mg/dL (<100)
== END ==
LOC: OD 09:18
PROVIDERS: ATTEND Psychiatry & Neurology Psychiatry
DX: F31.9 Bipolar disorder, unspecified (principal); F41.1 Generalized anxiety disorder; Z79.899 Other long term (current) drug therapy
CPT/HCPCS: 36415; 80053; 80061; 84443; 85025

== ENCOUNTER 2019-07-06 16:29 | Emergency (ER) | payer MEDICAID ==
--- NOTE | 2019-07-06 16:47 | ER Document Report ---
ED Medical Screen (RME) - General Chief Complaint: Psych Problem Stated Complaint: PSYCH EVAL/SUICIDAL IDEATION Time Seen by Provider: 07/06/19 16:40 Primary Care Provider: NICHOLAS SAN MD [Primary Care Provider] - Follow up as needed Mode of Arrival: Ambulatory Information source: Patient Notes: Patient is a 29-year-old female with bipolar disorder presenting to the emergency department with what she describes as suicidal thoughts. She states these have been building for the last several days. She states on Saturday she cut her left wrist. She states she called [facility] hoping to go inpatient for treatment however they told her that she did not meet criteria. She states that this made her cut again but even deeper this time causing more bleeding. She states that she then waited for the weekend to go by so that she could call [facility] and speak with her therapist (Isaac) to get advice on what to do. He advised her to come to the emergency department. At this moment patient is denying any suicidal or homicidal ideations. She does report that prior to arrival she was having suicidal thoughts and states that she thought about cutting herself more. She reports that she has been cutting herself since she was 15 years old. She states that she has been missing some of her doses of medication. She states this was because she chose to drink some alcohol and does not like taking her medication when she drinks alcohol. Superficial cut castillo noted to left wrist. I have greeted and performed a rapid initial assessment of this patient. A comprehensive ED assessment and evaluation of the patient, analysis of test results and completion of the medical decision making process will be conducted by additional ED providers. I have specifically instructed the patient or family members with the patient to immediately return to any nursing staff should anything change in the patient's condition or with their chief complaint. TRAVEL OUTSIDE OF THE [place] IN LAST 30 DAYS: No - Related Data Allergies/Adverse Reactions: No Known Allergies Allergy (Verified 05/24/18 11:24) Past Medical History - Past Medical History Cardiac Medical History: Reports: Hx Hypertension - Preeclampsia before and after delivery Pulmonary Medical History: Reports: Hx Asthma Renal/ Medical History: Denies: Hx Peritoneal Dialysis Psychiatric Medical History: Reports: Hx Anxiety, Hx Depression - Past Surgical History: Reports: Hx Section - Immunizations Hx Diphtheria, Pertussis, Tetanus Vaccination: No Physical Exam - Vital signs Vitals: Temp Pulse Resp BP Pulse Ox 98.4 F 112 H 20 156/98 H 97 07/06/19 16:33 07/06/19 16:33 07/06/19 16:33 07/06/19 16:33 07/06/19 16:33 Course - Vital Signs Vital signs: Temp Pulse Resp BP Pulse Ox 98.4 F 112 H 20 156/98 H 97 07/06/19 16:33 07/06/19 16:33 07/06/19 16:33 07/06/19 16:33 07/06/19 16:33 Doctor's Discharge - Discharge Referrals: NICHOLAS SAN MD [Primary Care Provider] - Follow up as needed
[2019-07-06 17:14] LABS: ABSOLUTE BASOPHILS # (AUTO) 0.1 10^3/uL (0.0-0.2); ABSOLUTE EOSINOPHILS # (AUTO) 0.1 10^3/uL (0.0-0.6); ABSOLUTE LYMPHOCYTES (AUTO) 3.3 10^3/uL (0.5-4.7); ABSOLUTE MONOCYTES (AUTO) 0.6 10^3/uL (0.1-1.4); ABSOLUTE NEUT (AUTO) 6.8 10^3/uL (1.7-8.2); BASOPHILS % (AUTO) 0.6 % (0-2); EOSINOPHILS % (AUTO) 0.7 % (0-6); HEMOGLOBIN 14.4 g/dL (12.0-15.5); LYMPHOCYTES % (AUTO) 30.9 % (13-45); MEAN CORPUSCULAR HEMOGLOBIN 30.8 pg (27.0-33.4); MEAN CORPUSCULAR HGB CONC 35.1 g/dL (32.0-36.0); MEAN CORPUSCULAR VOLUME 88 fl (80-97); MONOCYTES % (AUTO) 5.6 % (3-13); PLATELET COUNT 268 10^3/uL (150-450); RED BLOOD COUNT 4.67 10^6/uL (3.72-5.28); RED CELL DISTRIBUTION WIDTH 13.8 % (11.5-14.0); SEGMENTED NEUTROPHILS % (AUTO) 62.2 % (42-78); TOTAL CELLS COUNTED % (AUTO) 100 %; WHITE BLOOD COUNT 10.8 10^3/uL (4.0-10.5)
[2019-07-06 17:34] LABS: ALBUMIN 4.7 g/dL (3.5-5.0); ALKALINE PHOSPHATASE 58 U/L (38-126); ANION GAP 10 (5-19); APPEARANCE,URINE CLEAR; ASPARTATE AMINO TRANSFERASE 24 U/L (14-36); BILIRUBIN,TOTAL 0.4 mg/dL (0.2-1.3); BILIRUBIN,URINE NEGATIVE (NEGATIVE); BLOOD UREA NITROGEN 13 mg/dL (7-20); CALCIUM 9.3 mg/dL (8.4-10.2); CARBON DIOXIDE 25 mmol/L (22-30); CHLORIDE 104 mmol/L (98-107); COLOR,URINE YELLOW; GLUCOSE 105 mg/dL (75-110); GLUCOSE, URINE NEGATIVE (NEGATIVE); KETONES,URINE NEGATIVE (NEGATIVE); LEUKOCYTE ESTERASE,URINE NEGATIVE (NEGATIVE); NITRITE,URINE NEGATIVE (NEGATIVE); POTASSIUM 4.2 mmol/L (3.6-5.0); PROTEIN,URINE 30 mg/dL (NEGATIVE); TOTAL PROTEIN 7.8 g/dL (6.3-8.2); URINE SPECIFIC GRAVITY 1.025; UROBILINOGEN,URINE NEGATIVE mg/dL (<2.0)
[2019-07-06 17:36] LABS: ACETAMINOPHEN < 10 ug/mL (10-30); ALCOHOL < 10 mg/dL (NONE DETECTED); SALICYLATE < 1.0 mg/dL (2.0-20.0)
[2019-07-06 17:48] LABS: URINE AMPHETAMINES SCREEN NEGATIVE; URINE BARBITURATES SCREEN NEGATIVE; URINE BENZODIAZEPINES SCREEN NEGATIVE; URINE COCAINE SCREEN NEGATIVE; URINE MARIJUANA (THC) SCREEN NEGATIVE; URINE METHADONE SCREEN NEGATIVE; URINE PHENCYCLIDINE SCREEN NEGATIVE
[2019-07-06] MEDS ORDERED: DIPH/PERTUSS(ACELL)/TETANUS VAC/PF 0.5 ML SYR (>=10YO) IM ONE (18:47)
--- NOTE | 2019-07-06 18:54 | ER Document Report ---
ED General <MCKEONBIJU - Last Filed: 07/06/19 20:44> - General Mode of Arrival: Ambulatory TRAVEL OUTSIDE OF THE [place] IN LAST 30 DAYS: No - Related Data Home Medications: latuda, ativan, benztropine <WENDY GRACE - Last Filed: 07/06/19 21:41> - General Chief Complaint: Psych Problem Stated Complaint: PSYCH EVAL/SUICIDAL IDEATION Time Seen by Provider: 07/06/19 16:40 Primary Care Provider: Cu[facility] [Outside] - Follow up as needed NICHOLAS SAN MD [NO LOCAL MD] - Follow up as needed - HPI Notes: Chief complaint: Depression HPI: 29-year-old female with longstanding history of bipolar disorder, possible personality disorder and cutting behavior says she has been increasingly depressed over the past several weeks. She reports superficially cutting her wrists today. She would like to be admitted to an inpatient psychiatric facility. Admits that she is noncompliant with her prescription medications. Drinking alcohol intermittently but denies any alcohol within the last 24 hours. Denies any substance abuse. Patient does not express delusions. She denies auditory or verbal hallucinations. Currently living with her . Last tetanus booster is unknown. (WENDY GRACE) - Related Data Allergies/Adverse Reactions: No Known Allergies Allergy (Verified 05/24/18 11:24) Past Medical History - General Information source: Patient, [facility] - Social History Smoking Status: Never Smoker Chew tobacco use (# tins/day): No Frequency of alcohol use: Social Drug Abuse: None Family History: Arthritis, CAD, DM, Hyperlipidemia, Hypertension, Malignancy. denies: COPD, CVA, Thyroid Disfunction Patient has homicidal ideation: No - Past Medical History Cardiac Medical History: Reports: Hx Hypertension - Preeclampsia before and after delivery Pulmonary Medical History: Reports: Hx Asthma Renal/ Medical History: Denies: Hx Peritoneal Dialysis Psychiatric Medical History: Reports: Hx Anxiety, Hx Depression - Past Surgical History: Reports: Hx Section - Immunizations Hx Diphtheria, Pertussis, Tetanus Vaccination: No <WENDY GRACE - Last Filed: 07/06/19 21:41> Review of Systems <WENDY GRACE - Last Filed: 07/06/19 21:41> - Review of Systems Notes: Constitutional: Negative for fever. HENT: Negative for sore throat. Eyes: Negative for visual changes. Cardiovascular: Negative for chest pain. Respiratory: Negative for shortness of breath. Gastrointestinal: Negative for abdominal pain, vomiting or diarrhea. Genitourinary: Negative for dysuria. Musculoskeletal: Negative for back pain. Skin: As per HPI. Neurological: Negative for headaches, weakness or numbness. 10 point ROS negative except as marked above and in HPI. (WENDY GRACE) Physical Exam <WENDY GRACE - Last Filed: 07/06/19 21:41> - Vital signs Vitals: Temp Pulse Resp BP Pulse Ox 98.4 F 112 H 20 156/98 H 97 07/06/19 16:33 07/06/19 16:33 07/06/19 16:33 07/06/19 16:33 07/06/19 16:33 - Notes Notes: GENERAL: Well-developed well-nourished female approximately stated age with extremely flat affect and otherwise appearing in no acute distress. SKIN: Multiple extremely superficial transverse linear abrasions volar aspect left wrist. Good turgor no rashes. HEAD: Normocephalic atraumatic. EYES: PERRLA. EOMI. Conjunctivae and sclerae clear. EARS: CANALS AND TMS CLEAR. NOSE: CLEAR. MOUTH: Moist mucosa. Good dentition. No stridor or edema. No drooling. NECK: Supple. No masses or thyromegaly. No adenopathy. Carotids 2+ without bruits. No JVD. BACK: Symmetrical without tenderness. CHEST: Respirations unlabored. Breath sounds clear and symmetrical. HEART: Regular rhythm. No murmur gallop or rub. ABDOMEN: Soft nontender without masses, organomegaly or rebound. Bowel sounds normally active. No bruits. GENITALIA: Deferred. EXTREMITIES: Wrist abrasions as noted above. No edema. No calf tenderness. Cap refill less than 1.5 seconds. Dorsalis pedis and posterior tibial pulses 3+ and symmetrical. NEUROLOGICAL: GCS 15. Alert and oriented x3. Normal gait. Fluent speech. Cranial nerves II through XII intact. Sensorimotor and cerebellar normal. Normal tone. PSYCHIATRIC: Appropriate affect. (WENDY GRACE) Course - Laboratory Result Diagrams: 07/06/19 16:55 05/11/20 16:55 <BIJU MCKEON - Last Filed: 07/06/19 20:44> - Laboratory Result Diagrams: 07/06/19 16:55 07/06/19 16:55 <WENDY GRACE - Last Filed: 07/06/19 21:41> - Re-evaluation Re-evalutation: 07/06/19 18:53 Blood alcohol is negative. Urine drug screen negative. 07/06/19 18:53 Patient is cleared medically. She has been seen by behavioral health team and they do not believe she meets criteria for IVC at this time. I would concur. We do, however, feel that patient would potentially benefit from inpatient psychiatric admission voluntarily and we will try to coordinate this. 07/06/19 21:40 Patient has been medically cleared for voluntary admission to inpatient psychiatry. She will be going to [place] at 10 PM. (WENDY GRACE) - Vital Signs Vital signs: Temp Pulse Resp BP Pulse Ox 98.2 F 76 17 138/77 H 100 07/06/19 21:10 07/06/19 21:10 07/06/19 21:10 07/06/19 21:10 07/06/19 21:10 - Laboratory Laboratory results interpreted by me: 07/06/19 07/06/19 07/06/19 16:55 16:55 16:55 WBC 10.8 H Urine Protein 30 H Salicylates < 1.0 L Acetaminophen < 10 L - EKG Interpretation by Me Additional EKG results interpreted by me: 07/06/19 18:54 Twelve-lead EKG from 1659 hrs. reviewed contemporaneously by me demonstrating normal sinus rhythm with rate of 101 and QRS axis of -37 degrees. Intervals are normal. No acute ST/T wave changes appreciated. (WENDY GRACE) Discharge <BIJU MCKEON - Last Filed: 07/06/19 20:44> <WENDY GRACE - Last Filed: 07/06/19 21:41> - Discharge Clinical Impression: Bipolar disorder, Self mutilating behavior, Multiple wrist abrasions Condition: Stable Disposition: HOME, SELF-CARE Additional Instructions: You have been evaluated both medical and behavioral teams have been deemed appropriate for discharge. At this time you do not meet involuntary commitment criteria however would benefit from voluntary placement to reestablish your medications. The behavior health team was able to secure a bed for you at the [facility]; you are highly encouraged to follow through with this voluntary placement. You are encouraged to work with your outpatient mental health provider for continued treatment plan to address your maladaptive coping skills and build positive coping skills. AT ANY TIME, IF YOUR SYMPTOMS CHANGE SIGNIFICANTLY OR WORSEN OR YOU DEVELOP NEW SYMPTOMS, RETURN TO THE EMERGENCY DEPARTMENT IMMEDIATELY FOR RE-EVALUATION. Referrals: NICHOLAS SAN MD [NO LOCAL MD] - Follow up as needed [facility] [Outside] - Follow up as needed
--- NOTE | 2019-07-06 20:44 | PSYCHOLOGICAL NOTE ---
Psych Note - Psych Note Date seen by psych provider: 07/06/19 Time seen by psych provider: 17:20 Psych Note: Reason for Consult: Self Harm Patient discloses that she came to [facility] ED after speaking with her mental health provider at [facility]. She reports she attempted to admit herself to [facility] on Saturday however they told her that she did not meet criteria. She discloses that she has engaged in self-harm of cutting since the age of 15. She reports that when [facility] told her she did not meet criteria "I got very upset and cut more and deeper it took hours for it to stop bleeding." Patient showed clinician her her wrist, there is noted multiple superficial scratches going across her wrist that are scabbed. Patient identifies not taking her psychiatric medications for the last 3 days because "I did not want to." She reports that she waited until today and spoke with her provider with [facility] and was told to come to [facility]. She confirms she does not have any thoughts of killing herself, that she wants treatment for engaging in cuttin g. Clinician discussed with patient options of voluntary treatment at [facility]. Patient states that she thinks that her provider wants a longer treatment program then 3 days. She reports that he had discussed with her [facility] which was why she went to [facility] on Saturday. Clinician discussed the difference between voluntary and involuntary with the patient. She confirms she understands not meeting involuntary criteria and would like assistance for voluntary placement at [facility] to get reestablished on her medications. From there the patient can discuss with her outpatient mental health provider further treatment options. Patient is alert and orientated to person, place, time and circumstance. Mood is irritable with congruent affect. Patient denies suicidal and homicidal ideation reports engaging in self-harm of cutting. Delusions are absent behaviors congruent with an intact reality based presentation ie organized and linear thought process. Eye contact was fair to poor. Clinician notes patient has large mass or cyst on her left eyelid. Patient's grooming is fair; there is no body odor. Cluster B personality traits are noted Bipolar disorder per history provided by patient Anxiety per history provided by patient Impression\\plan: Patient is cleared from acute psychiatric services. Patient does not meet involuntary commitment criteria per [place] GS 122C. Patient denies suicidal and homicidal ideation. Patient's engagement in self-harm is superficial that has not needed any medical attention. Patient demonstrates insight into her diagnosis and wanting further treatment. Patient is requesting assistance in voluntary treatment. Patient has been off medications for the last 3 days and could benefit from assistance in medication stabilization. Clinician reached out to [facility]. They confirm they have a bed available. A voluntary bed has been reserved for the patient and she is highly encouraged to follow through with this placement for reestablishing medications. Patient is then recommended to follow-up with her outpatient mental health provider for further treatment plan to address her maladaptive coping skills. Dr. Solis was consulted to care management of this patient; attending physicians agreement with recommendations and disposition.
[2019-07-06 22:08] VITALS: BP 136/78
--- NOTE | 2019-07-06 22:34 | EKG REPORT ---
SEVERITY:- OTHERWISE NORMAL ECG - SINUS TACHYCARDIA LEFT AXIS DEVIATION : Confirmed by: Aure Bishop 06-Jul-2019 22:33:58
== END 2019-07-06 22:23 | disposition home or self-care (01) ==
LOC: ER 16:29
DX: F31.9 Bipolar disorder, unspecified (principal); S60.812A Abrasion of left wrist, initial encounter; S60.811A Abrasion of right wrist, initial encounter; X78.9XXA Intentional self-harm by unspecified sharp object, initial encounter; I10 Essential (primary) hypertension; J45.909 Unspecified asthma, uncomplicated
CPT/HCPCS: 36415; 80053; 80307; 81001; 85025; 90471; 90715; 93005; 93010; 99285

== ENCOUNTER 2020-01-27 01:12 | Emergency (ER) | payer MEDICAID, OTHER ==
--- NOTE | 2020-01-27 01:46 | ER Document Report ---
ED General - General Chief Complaint: ETOH Abuse Stated Complaint: ALCOHOL INTOXICATION Time Seen by Provider: 01/27/20 01:25 Primary Care Provider: KARMA LITTLE MD [EMERITUS] - Follow up as needed Mode of Arrival: Medic Information source: Patient Cannot obtain history due to: Intoxicated Notes: Patient presents to the ER for evaluation of alcohol intoxication with intake of approximately 6 to 8 mg of Ativan by mouth. Per EMS, the patient did tell them that she was not trying to kill herself. She does, however, have numerous superficial abrasions on her wrists and legs consistent with self-inflicted patterns. She is alert at the time of this encounter but she refuses to answer any questions. She is sobbing and will not acknowledge my presence. Nursing notes reviewed and past medical, social, and family histories reviewed and validated. TRAVEL OUTSIDE OF THE [place] IN LAST 30 DAYS: No - Related Data Allergies/Adverse Reactions: No Known Allergies Allergy (Verified 02/15/20 13:35) Past Medical History - General Information source: Emergency Med Personnel Cannot obtain history due to: Intoxicated - Social History Smoking Status: Unknown if Ever Smoked Frequency of alcohol use: Heavy Drug Abuse: Prescription drugs Lives with: Family Family History: Arthritis, CAD, DM, Hyperlipidemia, Hypertension, Malignancy. denies: COPD, CVA, Thyroid Disfunction Patient has suicidal ideation: No - Denies per EMS Patient has homicidal ideation: No - Denies per EMS - Past Medical History Cardiac Medical History: Reports: Hx Hypertension - Preeclampsia before and after delivery Pulmonary Medical History: Reports: Hx Asthma EENT Medical History: Reports: None Neurological Medical History: Reports: None Endocrine Medical History: Reports: None Renal/ Medical History: Reports: None Malignancy Medical History: Reports: None GI Medical History: Reports: None Musculoskeletal Medical History: Reports None Skin Medical History: Reports None Psychiatric Medical History: Reports: Hx Anxiety, Hx Depression - Traumatic Medical History: Reports: None Infectious Medical History: Reports: None Past Surgical History: Reports: Hx Section - Immunizations Hx Diphtheria, Pertussis, Tetanus Vaccination: No Review of Systems - Review of Systems Notes: Constitutional: Negative for fever. HENT:Difficult to obtain due to condition. Eyes: Difficult to obtain due to condition. Cardiovascular: Difficult to obtain due to condition. Respiratory: Difficult to obtain due to condition. Gastrointestinal: Difficult to obtain due to condition. Genitourinary:Difficult to obtain due to condition. Musculoskeletal: Difficult to obtain due to condition. Skin: Negative for rash. Neurological: Difficult to obtain due to condition. 10 point ROS negative except as marked above and in HPI. Physical Exam - Vital signs Vitals: Pulse Resp BP Pulse Ox 95 14 143/91 H 100 01/27/20 01:20 01/27/20 01:20 01/27/20 01:20 01/27/20 01:20 - Notes Notes: CONSTITUTIONAL: Patient is sobbing during exam. SKIN: There are numerous linear abrasions on the left wrist and the right leg. EYES: Extraocular movements are grossly intact, clear conjunctiva HENT: Normocephalic, atraumatic, moist mucus membranes NECK: No obvious swelling, normal range of motion PULMONARY: Normal chest rise and fall. Breath sounds clear and equal bilaterally. No respiratory distress or stridor CARDIOVASCULAR: Regular rate. No murmurs, rubs, gallops. Distal extremities are warm and well perfused. ABDOMINAL: Soft, nontender NEUROLOGIC: moves all extremities. Further neurologic exam is difficult due to lack of participation on the patient's behalf. MUSCULOSKELETAL: No gross deformities. Course - Re-evaluation Re-evalutation: 01/27/20 05:51 I have made another attempt to discuss tonight's precipitating factors with the patient. She admits that she was in an argument with her when she decided to overdose on Ativan. She admits that she was trying to harm herself when she took the Ativan. She also admits to self-mutilation of her left wrist. - Vital Signs Vital signs: Temp Pulse Resp BP Pulse Ox 98.4 F 88 14 139/83 H 100 01/28/20 08:55 01/28/20 06:10 01/28/20 08:55 01/28/20 08:55 01/28/20 08:55 - Laboratory Results Result Diagrams: 01/27/20 02:02 01/27/20 02:02 Laboratory Results Interpreted: 01/27/20 02:02 Salicylates < 1.0 L Acetaminophen < 10 L Critical Laboratory Results Reviewed: No Critical Results - Radiology Results Radiology reviewed: Reports reviewed Critical Radiology Results Reviewed: No Critical Results - Transfer of Care Care transferred to following provider: LUCIANA Leger. Notes: 12/02/20 08:00 Care transferred to oncoming provider. We are awaiting psych consult to determine disposition. The patient is resting comfortably and in no acute distress. Electronically signed: SUKHI Green- Discharge - Discharge Clinical Impression: Benzodiazepine abuse, Suicidal ideation, Self mutilating behavior Condition: Stable Disposition: PSYCH HOSP/UNIT Referrals: KARMA LITTLE MD [EMERITUS] - Follow up as needed
[2020-01-27 02:12] LABS: ABSOLUTE BASOPHILS # (AUTO) 0.1 10^3/uL (0.0-0.2); ABSOLUTE EOSINOPHILS # (AUTO) 0.1 10^3/uL (0.0-0.6); ABSOLUTE LYMPHOCYTES (AUTO) 2.7 10^3/uL (0.5-4.7); ABSOLUTE MONOCYTES (AUTO) 0.3 10^3/uL (0.1-1.4); ABSOLUTE NEUT (AUTO) 5.5 10^3/uL (1.7-8.2); BASOPHILS % (AUTO) 0.7 % (0-2); EOSINOPHILS % (AUTO) 0.6 % (0-6); HEMATOCRIT 39.1 % (36.0-47.0); HEMOGLOBIN 13.5 g/dL (12.0-15.5); LYMPHOCYTES % (AUTO) 31.2 % (13-45); MEAN CORPUSCULAR HEMOGLOBIN 30.3 pg (27.0-33.4); MEAN CORPUSCULAR HGB CONC 34.6 g/dL (32.0-36.0); MEAN CORPUSCULAR VOLUME 88 fl (80-97); PLATELET COUNT 266 10^3/uL (150-450); RED BLOOD COUNT 4.47 10^6/uL (3.72-5.28); RED CELL DISTRIBUTION WIDTH 13.8 % (11.5-14.0); SEGMENTED NEUTROPHILS % (AUTO) 63.5 % (42-78); TOTAL CELLS COUNTED % (AUTO) 100 %; WHITE BLOOD COUNT 8.6 10^3/uL (4.0-10.5)
[2020-01-27 02:29] LABS: ALBUMIN 4.6 g/dL (3.5-5.0); ALCOHOL 23 mg/dL (NONE DETECTED); ALKALINE PHOSPHATASE 61 U/L (38-126); ANION GAP 12 (5-19); ASPARTATE AMINO TRANSFERASE 25 U/L (14-36); BILIRUBIN,DIRECT 0.1 mg/dL (0.0-0.4); BILIRUBIN,TOTAL 0.4 mg/dL (0.2-1.3); BLOOD UREA NITROGEN 11 mg/dL (7-20); CALCIUM 9.1 mg/dL (8.4-10.2); CARBON DIOXIDE 23 mmol/L (22-30); CHLORIDE 105 mmol/L (98-107); GLUCOSE 104 mg/dL (75-110); TOTAL PROTEIN 7.7 g/dL (6.3-8.2)
[2020-01-27 02:30] LABS: ACETAMINOPHEN < 10 ug/mL (10-30); SALICYLATE < 1.0 mg/dL (2.0-20.0)
--- NOTE | 2020-01-27 02:53 | RADIOLOGY REPORT (SQ) ---
CHEST X-RAY 1 VIEW on 01/27/2020 1:57 AM CLINICAL INDICATION: Overdose COMPARISON: None FINDINGS: The lungs are clear. Cardiac, hilar and mediastinal contours are within normal limits. Pulmonary vascularity is within normal limits. No bony abnormality is noted. IMPRESSION: No active disease.
[2020-01-27 05:43] LABS: APPEARANCE,URINE SLIGHTLY-CLOUDY; BILIRUBIN,URINE NEGATIVE (NEGATIVE); COLOR,URINE YELLOW; GLUCOSE, URINE NEGATIVE (NEGATIVE); KETONES,URINE NEGATIVE (NEGATIVE); LEUKOCYTE ESTERASE,URINE NEGATIVE (NEGATIVE); NITRITE,URINE NEGATIVE (NEGATIVE); PROTEIN,URINE NEGATIVE (NEGATIVE); URINE SPECIFIC GRAVITY 1.023; UROBILINOGEN,URINE NEGATIVE mg/dL (<2.0)
[2020-01-27 05:59] LABS: URINE AMPHETAMINES SCREEN NEGATIVE; URINE BARBITURATES SCREEN NEGATIVE; URINE BENZODIAZEPINES SCREEN NEGATIVE; URINE COCAINE SCREEN NEGATIVE; URINE MARIJUANA (THC) SCREEN NEGATIVE; URINE METHADONE SCREEN NEGATIVE; URINE PHENCYCLIDINE SCREEN NEGATIVE
--- NOTE | 2020-01-27 09:08 | ER Document Report ---
Doctor's Note Notes: 01/27/20 09:06 Report has been received on the patient. I was asked by nursing to come evaluate the patient as she wished to leave. Patient was not placed on IVC overnight despite having cut her left wrist, supposedly overdosed on Ativan and alcohol. I went in to speak with the patient. She is very withdrawn. She will not answer my questions without significant prompting. She will not make eye contact. She states this is the first time she has done something like this. She states she wishes to leave because she feels better. Patient does have slight swelling to the left upper outer eyelid region but will not answer whether she was struck. Patient I believe is at risk for self-harm. She is not interacting well. I informed the patient that I wish her to speak with the psychiatric team and they will determine whether she may go home based on her risk after their assessment. She is aware of this and is in agreement with this. Patient is aware that she may not leave and I will place the patient on a 24-hour hold or IVC if she attempts to leave. This was communicated to nursing as well
--- NOTE | 2020-01-27 13:25 | PSYCHOLOGICAL NOTE ---
Psych Note - Psych Note Date seen by psych provider: 01/27/20 Time seen by psych provider: 10:40 Psych Note: Reason for Consult:intentional overdose' self harm cutting Consent Permissions: none provided Patient arrived to [facility] ED via EMS after intentional overdose on lorazepam and engaging in self harm cutting. Patient reports a history of cutting as a maladaptive coping skill. Patient is observed to have both scars and numerous fresh superficial cuts going in multiple directions on her inner wrist. Patient states she was drinking alcohol last night and got into an argument with her . Patient reports she has been taking her medications and feels they are working. She reports she thinks they are working because "My mood is more stable." Clinician notes patient has very flat affect. Patient states she is fine; when it is pointed out the concerns on how flat she is, she forces a huge smile, opens her eyes wide and loudly stated, " I am fine, I am great." Patient stated she doesn't have time to go inpatient psychiatric treatment. When asked why she overdosed, she reports "it was an mistake..an accident..I'm fine." Patient is alert and orientated to person, place, time and circumstance. Mood is irritable with flat affect. Patient presented after intentional overdosed and engaged in maladaptive cutting. Patient denies homicidal ideation. delusions are absent and behaviour is congruent with an intact reality based presentation ie organized and linear thought processes. Eye contact is poor. Conversation speech consists of one to three word replies and clearly conveys her irritability. intellectual abilities appears to be average range. Attention and concentration is fair. Insight, judgment, impulse control is poor. IVC Criteria per [place] GS 122C Dangerous to others Within the relevant past the individual No has inflicted or attempted to inflict or threatened to inflict serious bodily harm on another AND No that there is a reasonable probability that this conduct will be repeated as there is an absence of supervision or structure to prevent. OR No has acted in such a way as to create a substantial risk of serious bodily harm to another AND No that there is a reasonable probability that this conduct will be repeated as there is an absence of supervision or structure to prevent. OR No has engaged in extreme destruction of property AND NO that there is a reasonable probability that this conduct will be repeated as there is an absence of supervision or structure to prevent. Previous episodes of dangerousness to others, when applicable, may be considered when determining reasonable probability of future dangerous conduct. Clear, cogent, and convincing evidence that an individual has committed a homicide in the relevant past is prima facie evidence of dangerousness to others. Dangerous to self Within the relevant past the individual has done any of the following: acted in such a way as to show ALL of the following: No The individual would be unable without care, supervision, and the continued assistance of others not otherwise available, to exercise self- control, judgment, and discretion in the conduct of the individual's daily responsibilities and social relations or to satisfy the individual's need for nourishment, personal or medical care, care home, or self-protection and safety. AND No There is a reasonable probability of the individual suffering serious physical debilitation within the near future unless adequate treatment is given. A showing of behavior that is grossly irrational, of actions that the individual is unable to control, of behavior that is grossly inappropriate to the situation, or of other evidence of severely impaired insight and judgment shall create a prima facie inference that the individual is unable to care for himself or herself. OR YES has attempted suicide or threatened suicide AND YES that there is a reasonable probability of suicide unless adequate treatment is given as there is an absence of supervision or structure to prevent suicide of patient who has made an attempt, serious gesture or threat. Mood is irritable with flat affect. Patient presented after intentional overdosed and engaged in maladaptive cutting. OR No has mutilated himself or herself or attempted to mutilate himself or herself AND No that there is a reasonable probability of serious self-mutilation unless adequate treatment is given as there is an absence of supervision or structure to prevent. NOTE: Previous episodes of dangerousness to self, when applicable, may be considered when determining reasonable probability of physical debilitation, suicide, or self-mutilation. Medication recommendations are recommended; however, at this time the patient's home medication have not been reconciled Impression\\plan: Patient is recommend for IVC; paperwork is signed, faxed to [employer] and placed in patient's chart. Patient's mood is irritable with flat affect. She presented after intentional overdosed and engaged in maladaptive cutting. Patient reports she thinkings her medications are work but when asked why she overdosed she reports it was a mistake/accident. Patient only minimally engages with evaluation. She is been inpatient psychiatric treatment. There is concern the patient's medications need to be adjusted or changed. She is currently a harm to herself. Dr. Solis was consulted to care management of this patient; attending physicians in agreement with recommendations and disposition. Case management: [id number] Findings and Custody has been received; paperwork faxed to [facility] for placement consideration [id number] Patient was accepted to [facility] for admission in AM per Dr. Jose Antonio Messina; Transportation will be requested.
[2020-01-27] MEDS ORDERED: ACETAMINOPHEN 325 MG TABLET PO ONE (13:48)
--- NOTE | 2020-01-27 19:09 | EKG REPORT ---
SEVERITY:- BORDERLINE ECG - SINUS RHYTHM INFERIOR Q WAVES, PROBABLY NORMAL VARIATION : Confirmed by: Leonel Anne MD 27-Jan-2020 19:08:14
[2020-01-27] MEDS ORDERED: CHLORPROMAZINE HCL INJ 25 MG/1 ML AMPULE IM PRN (19:53)
[2020-01-27] MEDS ORDERED: BENZTROPINE MESYLATE INJ 2 MG/2 ML AMPULE IM SCH (20:00)
[2020-01-28 08:56] VITALS: BP 139/83
== END 2020-01-28 09:20 ==
LOC: ER 01:12
DX: Z04.6 Encounter for general psychiatric examination, requested by authority (principal); T42.4X2A Poisoning by benzodiazepines, intentional self-harm, initial encounter; F10.129 Alcohol abuse with intoxication, unspecified; R22.0 Localized swelling, mass and lump, head; S60.812A Abrasion of left wrist, initial encounter; S60.811A Abrasion of right wrist, initial encounter; X78.9XXA Intentional self-harm by unspecified sharp object, initial encounter; S80.812A Abrasion, left lower leg, initial encounter; S80.811A Abrasion, right lower leg, initial encounter; X58.XXXA Exposure to other specified factors, initial encounter; J45.909 Unspecified asthma, uncomplicated; Z79.899 Other long term (current) drug therapy; Z20.828 Contact with and (suspected) exposure to other viral communicable diseases
CPT/HCPCS: 93005; 99285; 96372; 36415; 80307 ×4; 85025; 87635; 81025; 80053; 81001; 71045; 93010; J3490; J0515; J3230; C9803

== ENCOUNTER 2020-02-15 13:10 | Inpatient (IN) | payer MEDICAID ==
--- NOTE | 2020-02-15 13:42 | ER Document Report ---
ED Medical Screen (RME) - General Chief Complaint: Shortness Of Breath Stated Complaint: SHORT OF BREATH,COUGH,FEVER Time Seen by Provider: 02/15/20 13:38 Primary Care Provider: WENDY RIOS DO [Primary Care Provider] - Follow up as needed Mode of Arrival: Ambulatory Information source: Patient Notes: 29-year-old female with a temperature of 101.7 short of breath O2 sat 88%. She is Covid positive. She does states she is extremely short of breath. She is alert and oriented at this time. She is answering all questions appropriately. We will get septic work-up. She states 101.7 is the lowest her fevers been in the last 3 to 4 days. She states she has had the shortness of breath since she was diagnosed on the . I have greeted and performed a rapid initial assessment of this patient. A comprehensive ED assessment and evaluation of the patient, analysis of test results and completion of medical decision making process will be conducted by an additional ED providers. TRAVEL OUTSIDE OF THE [place] IN LAST 30 DAYS: No - Related Data Allergies/Adverse Reactions: No Known Allergies Allergy (Verified 02/15/20 13:35) Past Medical History - Past Medical History Cardiac Medical History: Reports: Hx Hypertension - Preeclampsia before and after delivery Pulmonary Medical History: Reports: Hx Asthma Renal/ Medical History: Denies: Hx Peritoneal Dialysis Psychiatric Medical History: Reports: Hx Anxiety, Hx Depression - Past Surgical History: Reports: Hx Section - Immunizations Hx Diphtheria, Pertussis, Tetanus Vaccination: No Physical Exam - Vital signs Vitals: Temp Pulse Resp BP Pulse Ox 101.7 F H 110 H 24 H 123/75 89 L 02/15/20 13:36 02/15/20 13:36 02/15/20 13:36 02/15/20 13:36 02/15/20 13:36 Course - Vital Signs Vital signs: Temp Pulse Resp BP Pulse Ox 101.7 F H 110 H 24 H 123/75 89 L 02/15/20 13:36 02/15/20 13:36 02/15/20 13:36 02/15/20 13:36 02/15/20 13:36 Doctor's Discharge - Discharge Referrals: WENDY RIOS DO [Primary Care Provider] - Follow up as needed
[2020-02-15 14:51] LABS: VENOUS BLOOD BASE EXCESS 2.9 mmol/L; VENOUS BLOOD HCO3 28.4 mmol/L (20-32); VENOUS BLOOD PCO2 46.9 mmHg (35-63); VENOUS BLOOD PH 7.4 (7.30-7.42)
[2020-02-15 14:57] LABS: INTERNATIONAL RATION (INR) 1.03; PROTHROMBIN TIME 13.7 SEC (11.4-15.4)
[2020-02-15 15:00] LABS: ABSOLUTE LYMPHOCYTES (AUTO) 1.1 10^3/uL (0.5-4.7); ABSOLUTE MONOCYTES (AUTO) 0.4 10^3/uL (0.1-1.4); ABSOLUTE NEUT (AUTO) 5.1 10^3/uL (1.7-8.2); BASOPHILS % (AUTO) 0.2 % (0-2); EOSINOPHILS % (AUTO) 0.1 % (0-6); HEMOGLOBIN 12.7 g/dL (12.0-15.5); LYMPHOCYTES % (AUTO) 16.8 % (13-45); MEAN CORPUSCULAR HEMOGLOBIN 29.7 pg (27.0-33.4); MEAN CORPUSCULAR HGB CONC 34.2 g/dL (32.0-36.0); MEAN CORPUSCULAR VOLUME 87 fl (80-97); MONOCYTES % (AUTO) 6.2 % (3-13); PLATELET COUNT 222 10^3/uL (150-450); RED BLOOD COUNT 4.27 10^6/uL (3.72-5.28); RED CELL DISTRIBUTION WIDTH 13.6 % (11.5-14.0); SEGMENTED NEUTROPHILS % (AUTO) 76.7 % (42-78); TOTAL CELLS COUNTED % (AUTO) 100 %; WHITE BLOOD COUNT 6.6 10^3/uL (4.0-10.5)
--- NOTE | 2020-02-15 15:04 | RADIOLOGY REPORT (SQ) ---
EXAM DESCRIPTION: CHEST SINGLE VIEW IMAGES COMPLETED DATE/TIME: 02/15/2020 2:57 pm REASON FOR STUDY: Cough congestion short of breath O2 sat 88 fever COMPARISON: AP view of the chest from 01/27/2020. EXAM PARAMETERS: NUMBER OF VIEWS: One view. TECHNIQUE: An AP view of the chest was obtained. RADIATION DOSE: NA LIMITATIONS: None. FINDINGS: LUNGS AND PLEURA: Patchy bilateral asymmetric parenchymal opacities. There is no sizable pleural effusion or pneumothorax. MEDIASTINUM AND HILAR STRUCTURES: No mediastinal or hilar contour abnormality. HEART AND VASCULAR STRUCTURES: The cardiac silhouette and pulmonary vasculature are within normal payan its. BONES: No acute findings. HARDWARE: None in the chest. OTHER: No other finding. IMPRESSION: Asymmetric patchy bilateral parenchymal opacities concerning for a multifocal pneumonia. TECHNICAL DOCUMENTATION: JOB ID: [id number] [employer]- All Rights Reserved Reading location - IP/workstation name: [email or web address]
[2020-02-15 15:12] LABS: ALBUMIN 4.3 g/dL (3.5-5.0); ALKALINE PHOSPHATASE 58 U/L (38-126); ANION GAP 10 (5-19); ASPARTATE AMINO TRANSFERASE 35 U/L (14-36); BILIRUBIN,DIRECT 0.2 mg/dL (0.0-0.4); BILIRUBIN,TOTAL 0.5 mg/dL (0.2-1.3); BLOOD UREA NITROGEN 10 mg/dL (7-20); CALCIUM 8.5 mg/dL (8.4-10.2); CARBON DIOXIDE 30 mmol/L (22-30); CHLORIDE 100 mmol/L (98-107); GLUCOSE 105 mg/dL (75-110); POTASSIUM 3.4 mmol/L (3.6-5.0); TOTAL PROTEIN 7.3 g/dL (6.3-8.2)
[2020-02-15] MEDS ORDERED: ACETAMINOPHEN 325 MG TABLET PO ONE (16:15)
--- NOTE | 2020-02-15 17:31 | ER Document Report ---
ED General - General Chief Complaint: Breathing Difficulty Stated Complaint: SHORT OF BREATH,COUGH,FEVER Time Seen by Provider: 02/15/20 13:38 Primary Care Provider: WEDNY RIOS DO [Primary Care Provider] - Follow up as needed Mode of Arrival: Ambulatory TRAVEL OUTSIDE OF THE [place] IN LAST 30 DAYS: No - HPI Notes: 29-year-old female with past medical history for asthma and bipolar disorder to the emergency department with complaints of shortness of breath that has been getting worse since February 07 when she was diagnosed with Covid. She states that she took a significant bad turn in her shortness of breath about 2 days ago. She has been having fevers of 103 at home fairly consistently. She admits to body aches headache as well. She states that she has been using an at home inhaler but does not find that that helps her. She has never been hospitalized or intubated for her asthma before. - Related Data Allergies/Adverse Reactions: No Known Allergies Allergy (Verified 02/15/20 13:35) Past Medical History - General Information source: Patient - Social History Smoking Status: Former Smoker Chew tobacco use (# tins/day): No Frequency of alcohol use: None Drug Abuse: None Family History: Arthritis, CAD, DM, Hyperlipidemia, Hypertension, Malignancy. denies: COPD, CVA, Thyroid Disfunction Patient has homicidal ideation: No - Past Medical History Cardiac Medical History: Reports: Hx Hypertension - Preeclampsia before and after delivery Pulmonary Medical History: Reports: Hx Asthma Renal/ Medical History: Denies: Hx Peritoneal Dialysis Psychiatric Medical History: Reports: Hx Anxiety, Hx Depression - Past Surgical History: Reports: Hx Section - Immunizations Hx Diphtheria, Pertussis, Tetanus Vaccination: No Review of Systems - Review of Systems Constitutional: Chills, Fever EENT: Throat pain Cardiovascular: denies: Chest pain, Palpitations, Dizziness, Lightheaded Respiratory: Cough, Hurts to breathe, Short of breath Gastrointestinal: Nausea. denies: Abdominal pain, Diarrhea, Vomiting Genitourinary: No symptoms reported Musculoskeletal: Muscle pain - Body aches Skin: No symptoms reported Hematologic/Lymphatic: No symptoms reported Neurological/Psychological: No symptoms reported -: Yes All other systems reviewed and negative Physical Exam - Vital signs Vitals: Temp Pulse Resp BP Pulse Ox 101.7 F H 110 H 24 H 123/75 89 L 02/15/20 13:36 02/15/20 13:36 02/15/20 13:36 02/15/20 13:36 02/15/20 13:36 Interpretation: Normal - Notes Notes: PHYSICAL EXAMINATION: GENERAL: Well-appearing, well-nourished, obese. On 2 L of oxygen HEAD: Atraumatic, normocephalic. EYES: Pupils equal round and reactive to light, extraocular movements intact, sclera anicteric, conjunctiva are normal. ENT: nares patent, oropharynx clear without exudates. Moist mucous membranes. TMs are clear bilaterally NECK: Normal range of motion, supple without lymphadenopathy LUNGS: Decreased breath sounds throughout. No wheezes, rhonchi or rales appreciated. However, patient is frequently violently coughing. I did trial her off of oxygen during our exam and interview and the patient had desaturation in her oxygen to 87% HEART: Regular rate and rhythm without murmurs, no pitting edema ABDOMEN: Soft, nontender, obese, normoactive bowel sounds. No guarding, no rebound. No masses appreciated. No CVA tenderness EXTREMITIES: Normal range of motion, no pitting or edema. No cyanosis. NEUROLOGICAL: No focal neurological deficits. Moves all extremities spontaneously and on command. PSYCH: Normal mood, normal affect. SKIN: Warm, Dry, normal turgor, no rashes or lesions noted. Course - Re-evaluation Re-evalutation: 02/15/20 18:23 Patient with noted Covid pneumonia and suspect hypoxia. Venous blood gas was obtained through triage and I have ordered an arterial blood gas instead. Have tried to trial her off oxygen and she desats down to 87% after several minutes. Discussed the patient with Dr. Serrato, my ER attending. Agrees with the plan for admission. 02/15/20 19:[address] Peralta about the patient. We discussed how she has multifocal pneumonia on chest XR and when she comes off of O2, she desats into the 80s. He agrees with the plan for admission and would like for her to go to a medical floor. Impression: COVID-19 pneumonia with hypoxia. Patient will be admitted to the spitalist service. Patient agrees with the plan. She has been given Decadron and breathing treatment here. - Vital Signs Vital signs: Temp Pulse Resp BP Pulse Ox 101.7 F H 110 H 17 100/60 98 02/15/20 13:47 02/15/20 13:36 02/15/20 17:01 02/15/20 17:01 02/15/20 17:01 - Laboratory Results Result Diagrams: 02/15/20 14:26 02/15/20 14:26 Laboratory Results Interpreted: 02/15/20 02/15/20 02/15/20 14:26 14:26 14:26 APTT 41.1 H Fibrinogen 565 H Potassium 3.4 L Urine Protein Urine Ketones [place]isman 0.5 L 02/15/20 18:56 APTT Fibrinogen Potassium Urine Protein 100 H Urine Ketones TRACE H Crisman Critical Laboratory Results Reviewed: No Critical Results - Radiology Results Critical Radiology Results Reviewed: No Critical Results - EKG Interpretation by Me Additional EKG results interpreted by me: 02/15/20 19:27 Rate: 101 Rhythm: Sinus tachycardia Interpretation: No STEMI, left axis deviation, no comparison available Discharge - Discharge Clinical Impression: Pneumonia due to COVID-19 virus, Hypoxia Condition: Stable Disposition: ADMITTED INPATIENT Admitting Provider: [facility] Admitted: Medical Floor Referrals: WENDY RIOS DO [Primary Care Provider] - Follow up as needed
--- NOTE | 2020-02-15 17:43 | EKG REPORT ---
SEVERITY:- ABNORMAL ECG - SINUS TACHYCARDIA LEFT AXIS DEVIATION POOR R WAVE PROGRESSION ANTERIOR PRECORDIAL LEADS. : Confirmed by: Tomer Sprague MD 15-Feb-2020 17:42:26
[2020-02-15] MEDS ORDERED: DEXAMETHASONE SOD PHOS INJ 10 MG/1 ML VIAL IV ONE (17:45)
[2020-02-15] MEDS ORDERED: IPRATROPIUM/ALBUTEROL 0.5-2.5 MG/3 ML AMPUL NEB ONE (17:45)
[2020-02-15] MEDS ORDERED: NORMAL SALINE 500 ML IV ONE (17:46)
[2020-02-15 18:12] LABS: PARTIAL THROMBOPLASTIN TIME 41.1 SEC (23.5-35.8)
[2020-02-15 19:19] LABS: APPEARANCE,URINE SLIGHTLY-CLOUDY; BILIRUBIN,URINE NEGATIVE (NEGATIVE); COLOR,URINE AMBER; GLUCOSE, URINE NEGATIVE (NEGATIVE); KETONES,URINE TRACE mg/dL (NEGATIVE); LEUKOCYTE ESTERASE,URINE NEGATIVE (NEGATIVE); NITRITE,URINE NEGATIVE (NEGATIVE); PROTEIN,URINE 100 mg/dL (NEGATIVE); URINE SPECIFIC GRAVITY 1.032; UROBILINOGEN,URINE NEGATIVE mg/dL (<2.0)
[2020-02-15 19:41] LABS: ARTERIAL BLOOD BASE EXCESS 0.1 mmol/L; ARTERIAL BLOOD H2CO3 1.24 mmol/L (1.05-1.35); ARTERIAL BLOOD HCO3 24.9 mmol/L (20-24); ARTERIAL BLOOD O2 SATURATION 97.4 % (94-98); ARTERIAL BLOOD PCO2 41.2 mmHg (35-45); ARTERIAL BLOOD PO2 97.4 mmHg (80-100); ARTERIAL BLOOD TOTAL CO2 26.2 mmol/L (21-25)
[2020-02-15] MEDS ORDERED: ACETAMINOPHEN 325 MG TABLET PO PRN (19:51)
[2020-02-15 19:59] LABS: ARTERIAL BLOOD FIO2 4
--- NOTE | 2020-02-15 20:45 | PDOC H&P ---
History of Present Illness Admission Date/PCP: 02/15/20 19:36 WENDY RIOS DO Patient complains of: Shortness of breath History of Present Illness: BETITO TAYLOR is a 29 year old female with a history of asthma, bipolar disorder and PTSD who tested positive for COVID-19 on 02/07 now presents with worsening of cough and shortness of breath of 3 days duration. She first started having intermittent fever, sore throat, generalized body aches, nausea and vomiting of ingested matter on 07 February and was tested for Covid on the same day which came back positive. Over the past 3 days she has noticed that she has been progressively getting more and more short of breath initially with exertion but later it progressed and she started having difficulty of breathing even at rest. She also reports associated pleuritic chest pain with coughing and deep breathing on both sides. She has tried to use albuterol inhaler multiple times but has not helped. She denies any diarrhea, dizziness, abdominal pain, or any urinary symptoms. On arrival at the ED patient was saturating 88 to 89% on room air and has been requiring 2 L intranasal oxygen to saturate mid 90s. Past Medical History Cardiac Medical History: Reports: Hypertension - Preeclampsia before and after delivery Pulmonary Medical History: Reports: Asthma Psychiatric Medical History: Reports: Depression - Past Surgical History Past Surgical History: Reports: Section Social History Information Source: Patient Lives with: Family Smoking Status: Former Smoker Electronic Cigarette use?: No Hx Recreational Drug Use: No Drugs: None - Advance Directive Resuscitation Status: Full Code Family History Family History: Arthritis, CAD, DM, Hyperlipidemia, Hypertension, Malignancy. denies: COPD, CVA, Thyroid Disfunction Parental Family History Reviewed: Yes Children Family History Reviewed: Yes Sibling(s) Family History Reviewed.: Yes Medication/Allergy Home Medications: No.137/Iron/Folic Acd [ Vitamin Tablet] 1 cap PO DAILY 09/02/13 Doxylamine Succinate/Vit B6 [Diclegis Dr 10-10 mg Tablet] 1 each PO BID 08/23/16 Ondansetron [Zofran Odt 4 mg Tablet] 1 - 2 tab PO Q4H PRN #15 tab.rapdis 05/24/18 Oxycodone HCl/Acetaminophen [Percocet 5-325 mg Tablet] 1 - 2 tab PO Q4H PRN #15 tablet 05/24/18 Allergies/Adverse Reactions: No Known Allergies Allergy (Verified 02/15/20 13:35) Review of Systems Constitutional: PRESENT: as per HPI Eyes: ABSENT: visual disturbances Ears: ABSENT: hearing changes Nose, Mouth, and Throat: PRESENT: as per HPI Cardiovascular: PRESENT: as per HPI. ABSENT: edema, orthropnea, palpitations Respiratory: PRESENT: as per HPI Gastrointestinal: PRESENT: as per HPI, nausea, vomiting. ABSENT: abdominal pain, constipation, diarrhea, hematemesis, hematochezia Genitourinary: ABSENT: dysuria, hematuria Musculoskeletal: ABSENT: joint swelling Integumentary: ABSENT: rash, wounds Neurological: ABSENT: abnormal gait, abnormal speech, confusion, dizziness, focal weakness, syncope Psychiatric: ABSENT: anxiety, depression, homidical ideation, suicidal ideation Endocrine: ABSENT: cold intolerance, heat intolerance, polydipsia, polyuria Hematologic/Lymphatic: ABSENT: easy bleeding, easy bruising Physical Exam Vital Signs: Temp Pulse Resp BP Pulse Ox 101.7 F H 110 H 22 H 117/76 96 02/15/20 13:47 02/15/20 13:36 02/15/20 19:01 02/15/20 19:00 02/15/20 19:01 Intake & Output 02/14/20 02/15/20 02/16/20 06:59 06:59 06:59 Intake Total 500 Balance 500 Weight 92.7 kg Results Laboratory Results: 02/15/20 14:26 02/15/20 14:26 02/15/20 02/15/20 02/15/20 14:26 14:26 14:26 WBC 6.6 RBC 4.27 Hgb 12.7 Hct 37.0 MCV 87 MCH 29.7 MCHC 34.2 RDW 13.6 Plt Count 222 Seg Neutrophils % 76.7 Carbonic Acid HCO3/H2CO3 Ratio ABG pH ABG pCO2 ABG pO2 ABG HCO3 ABG O2 Saturation ABG Base Excess VBG pH 7.40 VBG pCO2 46.9 VBG HCO3 28.4 VBG Base Excess 2.9 FiO2 Sodium 139.7 Potassium 3.4 L Chloride 100 Carbon Dioxide 30 Anion Gap 10 BUN 10 Creatinine 0.88 Est GFR ( Amer) > 60 Glucose 105 Lactic Acid Calcium 8.5 Total Bilirubin 0.5 AST 35 Alkaline Phosphatase 58 Total Protein 7.3 Albumin 4.3 Lipase 125.1 Urine Color Urine Appearance Urine pH Ur Specific [place] Urine Protein Urine Glucose (UA) Urine Ketones Urine Blood Urine Nitrite Ur Leukocyte Esterase Urine WBC (Auto) Urine RBC (Auto) 02/15/20 02/15/20 02/15/20 14:26 15:55 18:56 WBC RBC Hgb Hct MCV MCH MCHC RDW Plt Count Seg Neutrophils % Carbonic Acid HCO3/H2CO3 Ratio ABG pH ABG pCO2 ABG pO2 ABG HCO3 ABG O2 Saturation ABG Base Excess VBG pH VBG pCO2 VBG HCO3 VBG Base Excess FiO2 Sodium Potassium Chloride Carbon Dioxide Anion Gap BUN Creatinine Est GFR ( Amer) Glucose Lactic Acid 1.3 1.0 Calcium Total Bilirubin AST Alkaline Phosphatase Total Protein Albumin Lipase Urine Color [place]O Urine Appearance SLIGHTLY-CLOUDY Urine pH 6.0 Ur Specific [place] 1.032 Urine Protein 100 H Urine Glucose (UA) NEGATIVE Urine Ketones TRACE H Urine Blood NEGATIVE Urine Nitrite NEGATIVE Ur Leukocyte Esterase NEGATIVE Urine WBC (Auto) 2 Urine RBC (Auto) 2 02/15/20 19:19 WBC RBC Hgb Hct MCV MCH MCHC RDW Plt Count Seg Neutrophils % Carbonic Acid 1.24 HCO3/H2CO3 Ratio 20:1 ABG pH 7.40 ABG pCO2 41.2 ABG pO2 97.4 ABG HCO3 24.9 H ABG O2 Saturation 97.4 ABG Base Excess 0.1 VBG pH VBG pCO2 VBG HCO3 VBG Base Excess FiO2 4 Sodium Potassium Chloride Carbon Dioxide Anion Gap BUN Creatinine Est GFR ( Amer) Glucose Lactic Acid Calcium Total Bilirubin AST Alkaline Phosphatase Total Protein Albumin Lipase Urine Color Urine Appearance Urine pH Ur Specific [place] Urine Protein Urine Glucose (UA) Urine Ketones Urine Blood Urine Nitrite Ur Leukocyte Esterase Urine WBC (Auto) Urine RBC (Auto) Impressions: Chest X-Ray 02/15/20 13:39 IMPRESSION: Asymmetric patchy bilateral parenchymal opacities concerning for a multifocal pneumonia. Assessment and Plan - Diagnosis (1) Acute respiratory failure with hypoxia Is this a current diagnosis for this admission?: Yes Plan: Patient presents with worsening shortness of breath Oxygen saturation was 89% on room air on presentation Tested positive for COVID-19 on 02/07 Currently saturating well on 2 L intranasal oxygen but drops to 87 to 88% when on room air Chest x-ray significant for bilateral patchy parenchymal opacity concerning for multifocal pneumonia ABG was done while she was on 4 L oxygen shows pH/PCO2/PO2 of 7.40/41/97 Started on dexamethasone, ivermectin, zinc, vitamin C, vitamin D Ordered D-dimer, LDH, ferritin, CK and CRP levels Breathing treatment as needed Closely monitor for signs of worsening respiratory failure (2) Pneumonia due to COVID-19 virus Is this a current diagnosis for this admission?: Yes Plan: Currently being managed for hypoxic respiratory failure after presenting with shortness of breath Was diagnosed for COVID-19 on 02/07 Chest x-ray significant for bilateral patchy parenchymal opacity concerning for multifocal pneumonia Started on dexamethasone, ivermectin, zinc, vitamin C, vitamin D Continue intranasal oxygen Continue supportive care for fever and vomiting Follow-up with ferritin, LDH, CRP, CK levels (3) Asthma Is this a current diagnosis for this admission?: Yes Plan: Currently not in acute exacerbation Continue as needed breathing treatment with DuoNeb's (4) Obesity (BMI 30-39.9) Is this a current diagnosis for this admission?: Yes Plan: nutritional counseling and encourage regular exercise (5) Bipolar disorder Is this a current diagnosis for this admission?: Yes Plan: Currently patient has normal mood and affect and denies any SI/HI Will continue home medications - Time Time Spent with patient: 35 or more minutes Total Critical Time (Minutes): 40 Medications reviewed and adjusted accordingly: Yes Anticipated Discharge Disposition: Home, Self Care Anticipated Discharge Timeframe: within 48 hours - Inpatient Certification Based on my medical assessment, after consideration of the patient's comorbidities, presenting symptoms, or acuity I expect that the services needed warrant INPATIENT care.: Yes I certify that my determination is in accordance with my understanding of Medicare's requirements for reasonable and necessary INPATIENT services [42 CFR 412.3e].: Yes Medical Necessity: Failure to Improve With Outpatient Therapy, Need Close Monitoring Due to Risk of Patient Decompensation, Need for Nebulizer Therapy and Monitoring of Response, Risk of Complication if Not Cared For in Hospital Post Hospital Care: D/C or Transfer Summary
[2020-02-15] MEDS ORDERED: ALBUTEROL SULFATE HFA (90 MCG/PUFF) 8 GM MDI IH PRN (20:47)
[2020-02-15] MEDS ORDERED: ENOXAPARIN SODIUM INJ 40 MG/0.4 ML DISP.SYRIN SUBCUT SCH (21:00)
[2020-02-15] MEDS ORDERED: IVERMECTIN 3 MG TABLET PO ONE (22:00)
[2020-02-15 22:12] LABS: C-REACTIVE PROTEIN 55.1 mg/L (<10.0)
[2020-02-15] MEDS: FAMOTIDINE 20 MG TABLET PO SCH (22:14)
[2020-02-15] MEDS: AZITHROMYCIN 250 MG TABLET PO SCH (22:14)
[2020-02-16] MEDS ORDERED: BENZTROPINE MESYLATE 1 MG TABLET PO ONE (02:15)
[2020-02-16] MEDS ORDERED: LITHIUM CARBONATE 300 MG CAPSULE PO ONE (02:15)
[2020-02-16] MEDS ORDERED: LURASIDONE HCL 60 MG TABLET PO ONE (02:15)
[2020-02-16] MEDS ORDERED: AZITHROMYCIN 250 MG TABLET PO ONE (02:30)
[2020-02-16] MEDS ORDERED: IVERMECTIN 3 MG TABLET PO ONE ×2 (02:30→16:30)
[2020-02-16] MEDS ORDERED: LITHIUM CARBONATE 300 MG CAPSULE ONE (02:49)
[2020-02-16] MEDS ORDERED: LURASIDONE HCL 40 MG TABLET PO ONE (03:45)
[2020-02-16] MEDS: PROMETHAZINE HCL INJ 25 MG/1 ML VIAL IV PRN ×2 (04:42→22:58)
[2020-02-16 05:24] LABS: ABSOLUTE LYMPHOCYTES (AUTO) 0.9 10^3/uL (0.5-4.7); ABSOLUTE MONOCYTES (AUTO) 0.1 10^3/uL (0.1-1.4); ABSOLUTE NEUT (AUTO) 3.3 10^3/uL (1.7-8.2); BASOPHILS % (AUTO) 0.1 % (0-2); HEMATOCRIT 35.7 % (36.0-47.0); HEMOGLOBIN 12.2 g/dL (12.0-15.5); MEAN CORPUSCULAR HEMOGLOBIN 29.9 pg (27.0-33.4); MEAN CORPUSCULAR HGB CONC 34.2 g/dL (32.0-36.0); MEAN CORPUSCULAR VOLUME 87 fl (80-97); MONOCYTES % (AUTO) 2.7 % (3-13); PLATELET COUNT 206 10^3/uL (150-450); RED CELL DISTRIBUTION WIDTH 13.4 % (11.5-14.0); SEGMENTED NEUTROPHILS % (AUTO) 77.2 % (42-78); TOTAL CELLS COUNTED % (AUTO) 100 %; WHITE BLOOD COUNT 4.2 10^3/uL (4.0-10.5)
[2020-02-16 05:53] LABS: ALKALINE PHOSPHATASE 55 U/L (38-126); ANION GAP 12 (5-19); ASPARTATE AMINO TRANSFERASE 29 U/L (14-36); BILIRUBIN,DIRECT 0.2 mg/dL (0.0-0.4); BILIRUBIN,TOTAL 0.4 mg/dL (0.2-1.3); BLOOD UREA NITROGEN 10 mg/dL (7-20); CALCIUM 8.8 mg/dL (8.4-10.2); CARBON DIOXIDE 26 mmol/L (22-30); CHLORIDE 103 mmol/L (98-107); GLUCOSE 162 mg/dL (75-110); POTASSIUM 3.8 mmol/L (3.6-5.0); TOTAL PROTEIN 7.1 g/dL (6.3-8.2)
[2020-02-16] MEDS ORDERED: ENOXAPARIN SODIUM INJ 40 MG/0.4 ML DISP.SYRIN SUBCUT SCH (10:00)
--- NOTE | 2020-02-16 10:02 | RADIOLOGY REPORT (SQ) ---
EXAM DESCRIPTION: CTA CHEST IMAGES COMPLETED DATE/TIME: 02/16/2020 9:14 am REASON FOR STUDY: elevated D dimer, sob COMPARISON: None. TECHNIQUE: CT scan of the chest performed using helical scanning technique with dynamic intravenous contrast injection. Images reviewed with lung, soft tissue and bone windows. Reconstructed coronal and sagittal MPR images reviewed. Additional 3 dimensional post-processing performed to develop Maximal Intensity Projection images (CT P). All images stored on PACS. All CT scanners at this facility use dose modulation, iterative reconstruction, and/or weight based d osing when appropriate to reduce radiation dose to as low as reasonably achievable (ALARA). [facility]: Dose Right [facility]: CareDose [facility]: Dose Right [facility]: Teradose 4D [facility]: Top Rops CONTRAST TYPE AND DOSE: contrast/concentration: Isovue 350.00 mmol/ml; Total Contrast Delivered: 75. 0 ml; Total Saline Delivered: 65.0 ml Contrast bolus adequate for pulmonary arteries and aorta. RENAL FUNCTION: BUN 10 creatinine 0.62. RADIATION DOSE: CT Rad equipment meets quality standard of care and radiation dose reduction techniq ues were employed. CTDIvol: 15.5 - 18.8 mGy. DLP: 607 mGy-cm. . LIMITATIONS: None. FINDINGS: LUNGS AND PLEURA: Scattered bilateral ground-glass opacities. No pleural effusions or ple ural calcifications. AORTA AND GREAT VESSELS: No aneurysm. Contrast bolus not optimized for the aorta. HEART: No pericardial effusion. No significant coronary artery calcifications. PULMONARY ARTERIES: No emboli visualized in the main pulmonary arteries or the segmental branches. HILAR AND MEDIASTINAL STRUCTURES: No identified masses or abnormal nodes. HARDWARE: None in the chest. UPPER ABDOMEN: No significant findings. Limited exam. THYROID AND OTHER SOFT TISSUES: No masses. No adenopathy. BONES: No acute or significant finding. 3D MIPS: Confirm above findings. OTHER: No other significant finding. IMPRESSION: NORMAL CTA OF THE CHEST. NO PULMONARY EMBOLI. SCATTERED BILATERAL GROUND-GLASS OPACITIES CONSISTENT WITH COVID-19 PNEUMONIA. COMMENT: Quality ID # [id number]: Final reports with documentation of one or more dose reduction techniques (e.g., Automated exposure control, adjustment of the mA and/or kV according to patient size, use of iterative reconstruction technique) TECHNICAL DOCUMENTATION: JOB ID: [id number] [email or web address]- All Rights Reserved Reading location - IP/workstation name: [email or web address]
[2020-02-16] MEDS: CHOLECALCIFEROL (D3) 1,000 UNIT (25 MCG) TABLET PO SCH (11:45)
[2020-02-16] MEDS: ZINC SULFATE 220 MG CAPSULE PO SCH (11:45)
[2020-02-16] MEDS: ASCORBIC ACID 500 MG TABLET PO SCH ×2 (11:45→17:43)
[2020-02-16] MEDS: FAMOTIDINE 20 MG TABLET PO SCH ×2 (11:45→22:33)
[2020-02-16] MEDS: DEXAMETHASONE SOD PHOS INJ 10 MG/1 ML VIAL IV SCH (11:45)
[2020-02-16] MEDS: ENOXAPARIN SODIUM INJ 60 MG/0.6 ML DISP.SYRIN SUBCUT SCH (11:46)
--- NOTE | 2020-02-16 15:09 | PDOC PROGRESS REPORT ---
Subjective Date:: 02/16/20 Subjective:: BETITO TAYLOR is a 29 year old female with a history of asthma, bipolar disor ambar and PTSD who tested positive for COVID-19 on 02/07 now presents with worsening of cough and shortness of breath of 3 days duration. She first started having intermittent fever, sore throat, generalized body aches, nausea and vomiting of ingested matter on 07 February and was tested for Covid on the same day which came back positive. Over the past 3 days she has noticed that she has been progressively getting more and more short of breath initially with exertion but later it progressed and she started having difficulty of breathing even at rest. She also reports associated pleuritic chest pain with coughing and deep breathing on both sides. She has tried to use albuterol inhaler multi ple times but has not helped. She denies any diarrhea, dizziness, abdominal pain, or any urinary symptoms. On arrival at the ED patient was saturating 88 to 89% on room air and has been requiring 2 L intranasal oxygen to saturate mid 90s. D2 hospital stay. Patient was seen and examined at bedside. She is on 2L of nasal cannula saturating 98%, I was able to decrease it to 1L and she continued to saturate above 93%. She reports that her breathing is much better, with very minimal cough. No chest pain, no palpitations. She has completed her ivermectin dose. Reason For Visit: ACUTE HYPOXIC RESPIRATORY FAILURE Physical Exam Vital Signs: Temp Pulse Resp BP Pulse Ox 97.4 F 77 19 114/63 96 02/16/20 12:51 02/16/20 12:51 02/16/20 12:51 02/16/20 12:51 02/16/20 12:51 Intake & Output 02/15/20 02/16/20 02/17/20 06:59 06:59 06:59 Intake Total 620 Balance 620 Weight 97.2 kg General appearance: PRESENT: no acute distress, cooperative Head exam: PRESENT: atraumatic, normocephalic Eye exam: PRESENT: EOMI, PERRLA Mouth exam: PRESENT: moist Neck exam: PRESENT: full ROM Respiratory exam: PRESENT: clear to auscultation lidia, symmetrical, unlabored Cardiovascular exam: PRESENT: RRR, +S1, +S2 Pulses: PRESENT: +2 pedal pulses bilateral GI/Abdominal exam: PRESENT: normal bowel sounds, soft. ABSENT: rebound, tenderness Extremities exam: PRESENT: full ROM Musculoskeletal exam: PRESENT: full ROM Neurological exam: PRESENT: alert, awake, oriented to person, oriented to place, oriented to time, oriented to situation Psychiatric exam: PRESENT: normal mood Skin exam: PRESENT: normal color Results Laboratory Results: 02/16/20 04:33 02/16/20 04:33 02/15/20 02/15/20 02/15/20 14:26 14:26 14:26 WBC 6.6 RBC 4.27 Hgb 12.7 Hct 37.0 MCV 87 MCH 29.7 MCHC 34.2 RDW 13.6 Plt Count 222 Seg Neutrophils % 76.7 Carbonic Acid HCO3/H2CO3 Ratio ABG pH ABG pCO2 ABG pO2 ABG HCO3 ABG O2 Saturation ABG Base Excess VBG pH 7.40 VBG pCO2 46.9 VBG HCO3 28.4 VBG Base Excess 2.9 FiO2 Sodium 139.7 Potassium 3.4 L Chloride 100 Carbon Dioxide 30 Anion Gap 10 BUN 10 Creatinine 0.88 Est GFR ( Amer) > 60 Glucose 105 Lactic Acid Calcium 8.5 Ferritin Total Bilirubin 0.5 AST 35 Alkaline Phosphatase 58 C-Reactive Protein Total Protein 7.3 Albumin 4.3 Lipase 125.1 Urine Color Urine Appearance Urine pH Ur Specific [place] Urine Protein Urine Glucose (UA) Urine Ketones Urine Blood Urine Nitrite Ur Leukocyte Esterase Urine WBC (Auto) Urine RBC (Auto) 02/15/20 02/15/20 02/15/20 14:26 15:55 18:56 WBC RBC Hgb Hct MCV MCH MCHC RDW Plt Count Seg Neutrophils % Carbonic Acid HCO3/H2CO3 Ratio ABG pH ABG pCO2 ABG pO2 ABG HCO3 ABG O2 Saturation ABG Base Excess VBG pH VBG pCO2 VBG HCO3 VBG Base Excess FiO2 Sodium Potassium Chloride Carbon Dioxide Anion Gap BUN Creatinine Est GFR ( Amer) Glucose Lactic Acid 1.3 1.0 Calcium Ferritin Total Bilirubin AST Alkaline Phosphatase C-Reactive Protein Total Protein Albumin Lipase Urine Color ISIDORO Urine Appearance SLIGHTLY-CLOUDY Urine pH 6.0 Ur Specific [place] 1.032 Urine Protein 100 H Urine Glucose (UA) NEGATIVE Urine Ketones TRACE H Urine Blood NEGATIVE Urine Nitrite NEGATIVE Ur Leukocyte Esterase NEGATIVE Urine WBC (Auto) 2 Urine RBC (Auto) 2 02/15/20 02/15/20 02/15/20 19:19 21:21 21:21 WBC RBC Hgb Hct MCV MCH MCHC RDW Plt Count Seg Neutrophils % Carbonic Acid 1.24 HCO3/H2CO3 Ratio 20:1 ABG pH 7.40 ABG pCO2 41.2 ABG pO2 97.4 ABG HCO3 24.9 H ABG O2 Saturation 97.4 ABG Base Excess 0.1 VBG pH VBG pCO2 VBG HCO3 VBG Base Excess FiO2 4 Sodium Potassium Chloride Carbon Dioxide Anion Gap BUN Creatinine Est GFR ( Amer) Glucose Lactic Acid 1.1 Calcium Ferritin 157.00 H Total Bilirubin AST Alkaline Phosphatase C-Reactive Protein 55.1 H Total Protein Albumin Lipase Urine Color Urine Appearance Urine pH Ur Specific [place] Urine Protein Urine Glucose (UA) Urine Ketones Urine Blood Urine Nitrite Ur Leukocyte Esterase Urine WBC (Auto) Urine RBC (Auto) 02/16/20 02/16/20 04:33 04:33 WBC 4.2 RBC 4.10 Hgb 12.2 Hct 35.7 L MCV 87 MCH 29.9 MCHC 34.2 RDW 13.4 Plt Count 206 Seg Neutrophils % 77.2 Carbonic Acid HCO3/H2CO3 Ratio ABG pH ABG pCO2 ABG pO2 ABG HCO3 ABG O2 Saturation ABG Base Excess VBG pH VBG pCO2 VBG HCO3 VBG Base Excess FiO2 Sodium 141.1 Potassium 3.8 Chloride 103 Carbon Dioxide 26 Anion Gap 12 BUN 10 Creatinine 0.62 Est GFR ( Amer) > 60 Glucose 162 H Lactic Acid Calcium 8.8 Ferritin Total Bilirubin 0.4 AST 29 Alkaline Phosphatase 55 C-Reactive Protein Total Protein 7.1 Albumin 4.0 Lipase Urine Color Urine Appearance Urine pH Ur Specific [place] Urine Protein Urine Glucose (UA) Urine Ketones Urine Blood Urine Nitrite Ur Leukocyte Esterase Urine WBC (Auto) Urine RBC (Auto) 02/15/20 14:26 Creatine Kinase 107 Impressions: Chest X-Ray 02/15/20 13:39 IMPRESSION: Asymmetric patchy bilateral parenchymal opacities concerning for a multifocal pneumonia. Chest/Abdomen CTA 02/16/20 00:00 IMPRESSION: NORMAL CTA OF THE CHEST. NO PULMONARY EMBOLI. SCATTERED BILATERAL GROUND-GLASS OPACITIES CONSISTENT WITH COVID-19 PNEUMONIA. Assessment and Plan - Diagnosis (1) Acute respiratory failure with hypoxia Is this a current diagnosis for this admission?: Yes Plan: Improved now down to 0.5-1L of O2 support Patient presents with worsening shortness of breath Oxygen saturation was 89% on room air on presentation Tested positive for COVID-19 on 02/07 Chest x-ray significant for bilateral patchy parenchymal opacity concerning for multifocal pneumonia ABG was done while she was on 4 L oxygen shows pH/PCO2/PO2 of 7.40/41/97 Started on dexamethasone, ivermectin, zinc, vitamin C, vitamin D D-dimer 1.46, LDH 373, ferritin 157, CK and CRP 55.1 levels Breathing treatment as needed Closely monitor for signs of worsening respiratory failure (2) Pneumonia due to COVID-19 virus Is this a current diagnosis for this admission?: Yes Plan: Currently being managed for hypoxic respiratory failure after presenting with shortness of breath Was diagnosed for COVID-19 on 02/07 Chest x-ray significant for bilateral patchy parenchymal opacity concerning for multifocal pneumonia Started on dexamethasone, ivermectin, zinc, vitamin C, vitamin D Continue intranasal oxygen Continue supportive care for fever and vomiting FErritin and CRP elevated (3) Asthma Is this a current diagnosis for this admission?: Yes Plan: Currently not in acute exacerbation Continue as needed breathing treatment with DuoNeb's (4) Bipolar disorder Qualifiers: Active/Remission status: remission status unspecified Qualified Code(s): F31.9 - Bipolar disorder, unspecified Is this a current diagnosis for this admission?: Yes Plan: Currently patient has normal mood and affect and denies any SI/HI lithium and Latuda resumed (5) Obesity (BMI 30-39.9) Is this a current diagnosis for this admission?: Yes Plan: nutritional counseling and encourage regular exercise - Time Time Spent with patient: 25-34 minutes Medications reviewed and adjusted accordingly: Yes Anticipated Discharge Disposition: Home, Self Care Anticipated Discharge Timeframe: within 48 hours
[2020-02-16] MEDS ORDERED: IVERMECTIN 3 MG TABLET PO SCH (22:00)
[2020-02-16] MEDS ORDERED: LITHIUM CARBONATE 300 MG CAPSULE PO SCH (22:00)
[2020-02-16] MEDS ORDERED: BENZTROPINE MESYLATE 1 MG TABLET PO SCH (22:00)
[2020-02-16] MEDS ORDERED: LURASIDONE HCL 60 MG TABLET PO SCH (22:00)
[2020-02-16] MEDS: AZITHROMYCIN 250 MG TABLET PO SCH (22:33)
[2020-02-17 05:32] LABS: ABSOLUTE LYMPHOCYTES (AUTO) 1.2 10^3/uL (0.5-4.7); ABSOLUTE MONOCYTES (AUTO) 0.7 10^3/uL (0.1-1.4); ABSOLUTE NEUT (AUTO) 8.8 10^3/uL (1.7-8.2); BASOPHILS % (AUTO) 0.1 % (0-2); HEMATOCRIT 35.4 % (36.0-47.0); HEMOGLOBIN 12.2 g/dL (12.0-15.5); LYMPHOCYTES % (AUTO) 11.3 % (13-45); MEAN CORPUSCULAR HEMOGLOBIN 30.3 pg (27.0-33.4); MEAN CORPUSCULAR HGB CONC 34.5 g/dL (32.0-36.0); MEAN CORPUSCULAR VOLUME 88 fl (80-97); MONOCYTES % (AUTO) 6.6 % (3-13); PLATELET COUNT 267 10^3/uL (150-450); RED BLOOD COUNT 4.03 10^6/uL (3.72-5.28); RED CELL DISTRIBUTION WIDTH 13.6 % (11.5-14.0); TOTAL CELLS COUNTED % (AUTO) 100 %
[2020-02-17 05:41] LABS: WHITE BLOOD COUNT 10.7 10^3/uL (4.0-10.5)
[2020-02-17 05:49] LABS: ALBUMIN 3.8 g/dL (3.5-5.0); ALKALINE PHOSPHATASE 49 U/L (38-126); ANION GAP 11 (5-19); ASPARTATE AMINO TRANSFERASE 22 U/L (14-36); BILIRUBIN,DIRECT 0.2 mg/dL (0.0-0.4); BILIRUBIN,TOTAL 0.4 mg/dL (0.2-1.3); BLOOD UREA NITROGEN 14 mg/dL (7-20); CALCIUM 8.8 mg/dL (8.4-10.2); CARBON DIOXIDE 25 mmol/L (22-30); CHLORIDE 107 mmol/L (98-107); GLUCOSE 140 mg/dL (75-110); TOTAL PROTEIN 6.8 g/dL (6.3-8.2)
[2020-02-17 09:17] VITALS: BP 109/65
[2020-02-17] MEDS: ZINC SULFATE 220 MG CAPSULE PO SCH (10:12)
[2020-02-17] MEDS: ASCORBIC ACID 500 MG TABLET PO SCH (10:12)
[2020-02-17] MEDS: CHOLECALCIFEROL (D3) 1,000 UNIT (25 MCG) TABLET PO SCH (10:12)
[2020-02-17] MEDS: ENOXAPARIN SODIUM INJ 60 MG/0.6 ML DISP.SYRIN SUBCUT SCH (10:14)
[2020-02-17] MEDS: FAMOTIDINE 20 MG TABLET PO SCH (10:14)
[2020-02-17] MEDS: DEXAMETHASONE SOD PHOS INJ 10 MG/1 ML VIAL IV SCH (10:16)
--- NOTE | 2020-02-17 17:57 | PDOC DISCHARGE SUMMARY ---
Impression - Admit/DC Date/PCP Admission Date/Primary Care Provider: 02/15/20 19:51 WENDY BLANCA, Discharge Date: 02/17/20 - Discharge Diagnosis (1) Acute respiratory failure with hypoxia Is this a current diagnosis for this admission?: Yes (2) Pneumonia due to COVID-19 virus Is this a current diagnosis for this admission?: Yes (3) Asthma Is this a current diagnosis for this admission?: Yes (4) Bipolar disorder Is this a current diagnosis for this admission?: Yes (5) Obesity (BMI 30-39.9) Is this a current diagnosis for this admission?: Yes - Assessment Summary: (1) Acute respiratory failure with hypoxia Is this a current diagnosis for this admission?: Yes Plan: Improved now down to 0.5-1L of O2 support Patient presents with worsening shortness of breath Oxygen saturation was 89% on room air on presentation Tested positive for COVID-19 on 02/07 Chest x-ray significant for bilateral patchy parenchymal opacity concerning for multifocal pneumonia ABG was done while she was on 4 L oxygen shows pH/PCO2/PO2 of 7.40/41/97 Started on dexamethasone, ivermectin, zinc, vitamin C, vitamin D D-dimer 1.46, LDH 373, ferritin 157, CK and CRP 55.1 levels Breathing treatment as needed Closely monitor for signs of worsening respiratory failure (2) Pneumonia due to COVID-19 virus Is this a current diagnosis for this admission?: Yes Plan: Currently being managed for hypoxic respiratory failure after presenting with shortness of breath Was diagnosed for COVID-19 on 02/07 Chest x-ray significant for bilateral patchy parenchymal opacity concerning for multifocal pneumonia Started on dexamethasone, ivermectin, zinc, vitamin C, vitamin D Continue intranasal oxygen Continue supportive care for fever and vomiting FErritin and CRP elevated (3) Asthma Is this a current diagnosis for this admission?: Yes Plan: Currently not in acute exacerbation Continue as needed breathing treatment with DuoNeb's (4) Bipolar disorder Qualifiers: Active/Remission status: remission status unspecified Qualified Code(s): F31.9 - Bipolar disorder, unspecified Is this a current diagnosis for this admission?: Yes Plan: Currently patient has normal mood and affect and denies any SI/HI lithium and Latuda resumed (5) Obesity (BMI 30-39.9) Is this a current diagnosis for this admission?: Yes Plan: nutritional counseling and encourage regular exercise - Additional Information Resuscitation Status: Full Code Discharge Diet: As Tolerated Discharge Activity: Activity As Tolerated Referrals: WENDY RIOS DO [Primary Care Provider] - Follow up as needed Prescriptions: Prednisone [Deltasone 20 mg Tablet] 20 mg PO DAILY 11 Days #11 tablet Albuterol Sulfate [Ventolin Hfa 8 gm Mdi] 2 puff IH Q4HP PRN 30 Days #2 inhaler PRN Reason: Ascorbic Acid [Vitamin C 500 mg Tablet] 500 mg PO BID 30 Days #60 tablet Cholecalciferol (Vitamin D3) [Vitamin D3 1000 Unit Tablet] 1,000 unit PO DAILY 30 Days #30 tablet Zinc Sulfate [Zinc-220 Capsule] 220 mg PO DAILY 30 Days #30 capsule Home Medications: Benztropine Mesylate [Cogentin 1 mg Tablet] 2 tab PO DAILY 02/15/20 Blanche Carbonate [Blanche Carbonate ER] 600 mg PO QHS 02/15/20 Lurasidone HCl [Latuda] 120 mg PO DAILY 02/15/20 Albuterol Sulfate [Ventolin Hfa 8 gm Mdi] 2 puff IH Q4HP PRN 30 Days #2 inhaler 02/17/20 Ascorbic Acid [Vitamin C 500 mg Tablet] 500 mg PO BID 30 Days #60 tablet 02/17/20 Cholecalciferol (Vitamin D3) [Vitamin D3 1000 Unit Tablet] 1,000 unit PO DAILY 30 Days #30 tablet 02/17/20 Prednisone [Deltasone 20 mg Tablet] 20 mg PO DAILY 11 Days #11 tablet 02/17/20 Zinc Sulfate [Zinc-220 Capsule] 220 mg PO DAILY 30 Days #30 capsule 02/17/20 History of Present Illiness History of Present Illness: BETITO TAYLOR is a 29 year old female with a history of asthma, bipolar disorder and PTSD who tested positive for COVID-19 on 02/07 now presents with worsening of cough and shortness of breath of 3 days duration. She first started having intermittent fever, sore throat, generalized body aches, nausea and vomiting of ingested matter on 07 February and was tested for Covid on the same day which came back positive. Over the past 3 days she has noticed that she has been progressively getting more and more short of breath initially with exertion but later it progressed and she started having difficulty of breathing even at rest. She also reports associated pleuritic chest pain with coughing and deep breathing on both sides. She has tried to use albuterol inhaler multiple times but has not helped. She denies any diarrhea, dizziness, abdominal pain, or any urinary symptoms. On arrival at the ED patient was saturating 88 to 89% on room air and has been requiring 2 L intranasal oxygen to saturate mid 90s. Hospital Course Hospital Course: D2 hospital stay. Patient was seen and examined at bedside. She is on 2L of nasal cannula saturating 98%, I was able to decrease it to 1L and she continued to saturate above 93%. She reports that her breathing is much better, with very minimal cough. No chest pain, no palpitations. She has completed her ivermectin dose. D3 hospital stay. patient was seen and examined at bedside. She was weaned off O2 and saturates 95% on RA and also with ambulation. She was eventually discharged on prednisone for 11 more days, aspirin for 30 days and albuterol inhalers. follow up with PCP was advised. She received ivermectin and dexamethasone inpatient. Physical Exam Vital Signs: Temp Pulse Resp BP Pulse Ox 98.0 F 70 20 109/65 94 02/17/20 11:00 02/17/20 11:00 02/17/20 11:00 02/17/20 08:48 02/17/20 11:00 Intake & Output 02/16/20 02/17/20 02/18/20 06:59 06:59 06:59 Intake Total 620 1326 Output Total 1800 Balance 620 -474 Weight 97.2 kg 97.4 kg General appearance: PRESENT: no acute distress, cooperative Head exam: PRESENT: atraumatic, normocephalic Eye exam: PRESENT: EOMI, PERRLA Mouth exam: PRESENT: moist Neck exam: PRESENT: full ROM Respiratory exam: PRESENT: clear to auscultation lidia, symmetrical, unlabored. ABSENT: wheezes Cardiovascular exam: PRESENT: RRR, +S1, +S2 Pulses: PRESENT: +2 pedal pulses bilateral GI/Abdominal exam: PRESENT: normal bowel sounds, soft. ABSENT: rebound, tenderness Extremities exam: PRESENT: full ROM Musculoskeletal exam: PRESENT: full ROM Neurological exam: PRESENT: alert, awake, oriented to person, oriented to place, oriented to time, oriented to situation Psychiatric exam: PRESENT: normal mood Skin exam: PRESENT: normal color Results Laboratory Results: WBC 10.7 10^3/uL (4.0-10.5) H D 02/17/20 04:10 RBC 4.03 10^6/uL (3.72-5.28) 02/17/20 04:10 Hgb 12.2 g/dL (12.0-15.5) 02/17/20 04:10 Hct 35.4 % (36.0-47.0) L 02/17/20 04:10 MCV 88 fl (80-97) 02/17/20 04:10 MCH 30.3 pg (27.0-33.4) 02/17/20 04:10 MCHC 34.5 g/dL (32.0-36.0) 02/17/20 04:10 RDW 13.6 % (11.5-14.0) 02/17/20 04:10 Plt Count 267 10^3/uL (150-450) 02/17/20 04:10 Lymph % (Auto) 11.3 % (13-45) L 02/17/20 04:10 [place] % (Auto) 6.6 % (3-13) 02/17/20 04:10 Eos % (Auto) 0.0 % (0-6) 02/17/20 04:10 Baso % (Auto) 0.1 % (0-2) 02/17/20 04:10 Absolute Neuts (auto) 8.8 10^3/uL (1.7-8.2) H 02/17/20 04:10 Absolute Lymphs (auto) 1.2 10^3/uL (0.5-4.7) 02/17/20 04:10 Absolute Monos (auto) 0.7 10^3/uL (0.1-1.4) 02/17/20 04:10 Absolute Eos (auto) 0.0 10^3/uL (0.0-0.6) 02/17/20 04:10 Absolute Basos (auto) 0.0 10^3/uL (0.0-0.2) 02/17/20 04:10 Seg Neutrophils % 82.0 % (42-78) H 02/17/20 04:10 PT 13.7 SEC (11.4-15.4) 02/15/20 14:26 PT Cancelled 02/15/20 14:26 INR 1.03 12/21/20 14:26 INR Cancelled 02/15/20 14:26 INR (Anticoag Therapy) Cancelled 02/15/20 14:26 APTT 41.1 SEC (23.5-35.8) H 02/15/20 14:26 Fibrinogen 565 mg/dL (209-497) H 02/15/20 14:26 D-Dimer 1.46 ug/mL (0.00-0.50) H 02/15/20 14:26 Carbonic Acid 1.24 mmol/L (1.05-1.35) 02/15/20 19:19 HCO3/H2CO3 Ratio 20:1 02/15/20 19:19 ABG pH 7.40 (7.35-7.45) 02/15/20 19:19 ABG pCO2 41.2 mmHg (35-45) 02/15/20 19:19 ABG pO2 97.4 mmHg (80-100) 02/15/20 19:19 ABG HCO3 24.9 mmol/L (20-24) H 02/15/20 19:19 ABG Total CO2 26.2 mmol/L (21-25) H 02/15/20 19:19 ABG O2 Saturation 97.4 % (94-98) 02/15/20 19:19 ABG Base Excess 0.1 mmol/L 02/15/20 19:19 VBG pH 7.40 (7.30-7.42) 02/15/20 14:26 VBG pCO2 46.9 mmHg (35-63) 02/15/20 14:26 VBG HCO3 28.4 mmol/L (20-32) 02/15/20 14:26 VBG Base Excess 2.9 mmol/L 02/15/20 14:26 FiO2 4 02/15/20 19:19 Sodium 142.9 mmol/L (137-145) 02/17/20 04:10 Potassium 4.0 mmol/L (3.6-5.0) 02/17/20 04:10 Chloride 107 mmol/L (98-107) 02/17/20 04:10 Carbon Dioxide 25 mmol/L (22-30) 02/17/20 04:10 Anion Gap 11 (5-19) 02/17/20 04:10 BUN 14 mg/dL (7-20) 02/17/20 04:10 Creatinine 0.70 mg/dL (0.52-1.25) 02/17/20 04:10 Est GFR ( Amer) > 60 (>60) 02/17/20 04:10 Est GFR (MDRD) Non-Af > 60 (>60) 02/17/20 04:10 Glucose 140 mg/dL (75-110) H 02/17/20 04:10 Lactic Acid 1.1 mmol/L (0.7-2.1) 02/15/20 21:21 Calcium 8.8 mg/dL (8.4-10.2) 02/17/20 04:10 Ferritin 157.00 ng/mL (6.2-137.0) H 02/15/20 21:21 Total Bilirubin 0.4 mg/dL (0.2-1.3) 02/17/20 04:10 Direct Bilirubin 0.2 mg/dL (0.0-0.4) 02/17/20 04:10 Neonat Total Bilirubin Not Reportable 02/17/20 04:10 Neonat Direct Bilirubin Not Reportable 02/17/20 04:10 Neonat Indirect Bili Not Reportable 02/17/20 04:10 AST 22 U/L (14-36) 02/17/20 04:10 ALT 15 U/L (<35) 02/17/20 04:10 Alkaline Phosphatase 49 U/L (38-126) 02/17/20 04:10 Lactate Dehydrogenase 373 U/L (120-246) H 02/15/20 21:21 Creatine Kinase 107 U/L (30-135) 02/15/20 14:26 C-Reactive Protein 55.1 mg/L (<10.0) H 02/15/20 21:21 Total Protein 6.8 g/dL (6.3-8.2) 02/17/20 04:10 Albumin 3.8 g/dL (3.5-5.0) 02/17/20 04:10 Lipase 125.1 U/L (23-300) 02/15/20 14:26 Beta HCG, Quant < 2.39 mIU/mL (0.0-6.15) 02/15/20 14:26 Total Beta HCG NEGATIVE (NEGATIVE) 02/15/20 14:26 Urine Color ISIDORO 02/15/20 18:56 Urine Appearance SLIGHTLY-CLOUDY 02/15/20 18:56 Urine pH 6.0 (5.0-9.0) 02/15/20 18:56 Ur Specific [place] 1.032 02/15/20 18:56 Urine Protein 100 mg/dL (NEGATIVE) H 02/15/20 18:56 Urine Glucose (UA) NEGATIVE mg/dL (NEGATIVE) 02/15/20 18:56 Urine Ketones TRACE mg/dL (NEGATIVE) H 02/15/20 18:56 Urine Blood NEGATIVE (NEGATIVE) 02/15/20 18:56 Urine Nitrite NEGATIVE (NEGATIVE) 02/15/20 18:56 Urine Bilirubin NEGATIVE (NEGATIVE) 02/15/20 18:56 Urine Urobilinogen NEGATIVE mg/dL (<2.0) 02/15/20 18:56 Ur Leukocyte Esterase NEGATIVE (NEGATIVE) 02/15/20 18:56 Urine WBC (Auto) 2 /HPF 02/15/20 18:56 Urine RBC (Auto) 2 /HPF 02/15/20 18:56 Urine Bacteria (Auto) TRACE /HPF 02/15/20 18:56 Squamous Epi Cells Auto 8 /HPF 02/15/20 18:56 Urine Mucus (Auto) MANY /LPF 02/15/20 18:56 Urine Ascorbic Acid NEGATIVE (NEGATIVE) 02/15/20 18:56 Blanche 0.5 mEq/L (0.6-1.2) L 02/15/20 14:26 Impressions: Chest X-Ray 02/15/20 13:39 IMPRESSION: Asymmetric patchy bilateral parenchymal opacities concerning for a multifocal pneumonia. Chest/Abdomen CTA 02/16/20 00:00 IMPRESSION: NORMAL CTA OF THE CHEST. NO PULMONARY EMBOLI. SCATTERED BILATERAL GROUND-GLASS OPACITIES CONSISTENT WITH COVID-19 PNEUMONIA. Plan Plan of Treatment: - continue aspirin for 30 days and prednisone for 11 more days. - ff.up with PCP Stroke Is this a Stroke Patient?: No Acute Heart Failure Is this a Heart Failure Patient?: No
== END 2020-02-17 11:30 | disposition home or self-care (01) | DRG 177 ==
LOC: ER 13:10 → INTOOBSV 19:36 → EH 19:36 → OBSVTOIN 19:51 → 3N 23:44
PROVIDERS: ADMIT Student in an Organized Health Care Education/Training Program; ATTEND Internal Medicine
DX: U07.1 COVID-19 (principal); J96.01 Acute respiratory failure with hypoxia; J12.89 Other viral pneumonia; J45.909 Unspecified asthma, uncomplicated; F31.9 Bipolar disorder, unspecified; E66.9 Obesity, unspecified; F43.10 Post-traumatic stress disorder, unspecified; Z68.39 Body mass index [BMI] 39.0-39.9, adult; Z79.899 Other long term (current) drug therapy; Z87.891 Personal history of nicotine dependence
CPT/HCPCS: 36415; 71045; 71275; 80053; 80178; 81001; 82550; 82728; 82803; 83605; 83615; 83690; 84702; 85025; 85379; 85384; 85610; 85730; 86140; 87040; 93005; 93010; 94640; 96365; 99285; J1100; J1650; J2550; J3490; J7040